=== PATIENT | male | born 1960 | race Caucasian/White ===

== ENCOUNTER → 2017-10-01 11:15 | Outpatient (CLI) | payer BC, SELFPAY ==
[2017-10-01 13:16] LABS: Hematocrit 39.3 % (40-54); Hemoglobin 11.9 g/dl (13.0-16.5); Mean Corp Hgb Conc 30.3 g/gl (32-36); Mean Corpuscular Hgb 22.2 pg (27.0-32.0); Mean Corpuscular Volume 73.3 fL (80-94); Mean Platelet Vol. 9.8 fl (6.2-12.0); Platelet Count 281 K/mm3 (150-450); RBC Distribution Width CV 16.5 % (11.6-14.6); RBC Distribution Width SD 43.4 fl (35.1-43.9); Red Blood Count 5.36 M/mm3 (4.6-6.2); White Blood Count 6.6 K/mm3 (4.4-11.0)
[2017-10-01 13:20] LABS: Scan Indicated on CBC? Y/N YES- FLAGS NOTED
== END ==
PROVIDERS: Family Provider Family Medicine; PCP Family Medicine
DX: F64.0 Transsexualism (principal)
CPT/HCPCS: 36415; 84403; 85027

== ENCOUNTER → 2017-12-23 16:05 | Outpatient (CLI) | payer BC, SELFPAY ==
[2017-12-23 18:32] LABS: Absolute Lymphocyte Count 2.01 X10^3/ul (0.83-4.51); Absolute Neutrophil Count 4.8 X10^3/uL (2.0-7.7); Basophil# 0.04 X10^3/uL; Basophil% 0.5 % (0-1); Eosinophil# 0.13 X10^3/uL; Eosinophils% 1.7 % (0-5); Hematocrit 39.4 % (40-54); Hemoglobin 11.5 g/dl (13.0-16.5); Lymphocyte # 2.01 X10^3/ul (4.0); Mean Corp Hgb Conc 29.2 g/gl (32-36); Mean Corpuscular Hgb 21.9 pg (27.0-32.0); Mean Corpuscular Volume 74.9 fL (80-94); Mean Platelet Vol. 9.2 fl (6.2-12.0); Monocyte# 0.48 X10^3/uL; Monocyte% 6.4 % (0-10); Neutrophil # 4.76 X10^3/uL (2.7-7.7); Platelet Count 252 K/mm3 (150-450); RBC Distribution Width CV 17.3 % (11.6-14.6); RBC Distribution Width SD 46.8 fl (35.1-43.9); Red Blood Count 5.26 M/mm3 (4.6-6.2); White Blood Count 7.5 K/mm3 (4.4-11.0)
[2017-12-23 18:33] LABS: Differential Indicated SCAN CRITERIA MET; POSITIVE COUNT NO; POSITIVE DIFFERENTIAL NO; POSITIVE MORPHOLOGY YES
[2017-12-23 18:38] LABS: CRP 4.51 mg/L (0.0-3.0); Uric Acid 8.1 mg/dL (3.5-7.2)
[2017-12-23 18:59] LABS: Differential Comment SCANNED
[2017-12-28 10:11] LABS: ANTINUCLEAR ANTIBODIES DIRECT Negative (Negative)
== END ==
PROVIDERS: Family Provider Family Medicine; PCP Family Medicine; Visit Provider Family Medicine
DX: M25.50 Pain in unspecified joint (principal)
CPT/HCPCS: 36415; 84439; 84443; 84550; 85025; 86038; 86140; 86431

== ENCOUNTER → 2018-01-04 16:31 | Outpatient (CLI) | payer BC, SELFPAY | PROVIDERS: Family Provider Family Medicine; PCP Family Medicine; Visit Provider Family Medicine | DX: M25.561 Pain in right knee (principal); M25.552 Pain in left hip | CPT/HCPCS: 73502; 73564 ==

== ENCOUNTER → 2018-04-11 16:12 | Outpatient (CLI) | payer BC, SELFPAY ==
[2018-04-11 18:36] LABS: Uric Acid 3.7 mg/dL (3.5-7.2)
--- OUTSIDE RECORDS SUMMARY | 2018-05-29 01:11 | XMS RPT_ITS ---
:1960 Author Organization [facility] Care Team Providers Name Role Phone PROVIDER, UNKNOWN Admitting Unavailable PROVIDER, UNKNOWN Attending Unavailable PATIENT, SELF Referring Unavailable Chuy Carlson Attending Unavailable Chuy Carlson Primary Care Unavailable AASHISH LANDRUM Attending Unavailable AASHISH LANDRUM Referring Unavailable Chuy Carlson Primary Care Unavailable Chuy Carlson Attending Unavailable Chuy Carlson Primary Care Unavailable Jossue Marie Attending Unavailable Jossue Marie Referring Unavailable Chuy Carlson Primary Care Unavailable PROBLEMS PROBLEMS DATE TYPE CONDITION / CODE ATTENDING STATUS SOURCE 01/04/2018 Unknown M25.561 - Pain in Gricelda Marie right knee / [facility] M25.561(ICD-10) Hospital Repository 01/04/2018 Unknown M25.552 - Pain in Frank, Active [place] left hip / [facility] M25.552(ICD-10) Hospital Repository 12/23/2017 Unknown M25.50 - Pain in Chuy Carlson Active [place] unspecified joint / Community M25.50(ICD-10) Hospital Repository 10/07/2017 Active Transsexualism / Unknown Active [facility] F64.0(ICD-10) System Repository PROCEDURES PROCEDURES No Procedure Records FoundRESULTS RESULTS URIC ACID Collected: 04/11/2018 Status: F Source: [place] 4:15 PM [facility] REPOSITORY Order Comment: Order Date: 12/27/17 Order Info: 3084-1 - URIC TYPE CODE TESTS RESULT OUT OF RANGE REFERENCE UNITS LAB L501.1400 3.5-7.2 mg/dL Normal URIC 3.7 Result Comment: The drugs N-Acetylcysteine and Metamizole may falsely depress this assay. Performed By: #### L501.1400 #### [facility] [address] [place], [address] KNEE 4 OR MORE Observed: 01/04/2018 Status: F Source: [place] VIEWS 4:37 PM [facility] REPOSITORY [facility] Imaging Services [address] [place] [address] Knee 4 or More Views MR#: [id number] Acct: [id number] Name: SHIMON CARLTON Rep #: [id number] : 1960 M 57 From: Angelo Rust DO PCP: Chuy Carlson MD Status: REG CLI Study: Knee 4 or More Views Date of Exam: 01/04/18 Exam# [id number] Ordering Dr: Ovi Marie MD STUDY: X-RAY - RIGHT KNEE REASON FOR EXAM: Male, 57 years old. Bilateral knee pain. TECHNIQUE: 4 view(s) of the knee. COMPARISON: None. FINDINGS: Normal visualized distal femur. Normal visualized proximal tibia and fibula. There is arthrosis of the proximal tibiofibular articulation. There is no acute fracture, dislocation or destructive osseous pathology. There is these findings at the insertion of both the patellar and quadriceps tendon on the patella. There is mild degenerative arthrosis of the medial femorotibial compartment. There is mild degenerative arthrosis of the lateral femorotibial compartment. There is moderate degenerative arthrosis of the patellofemoral articulation. There is no demonstrated joint effusion. The soft tissue structures are unremarkable. RAD/Knee 4 or More Views IMPRESSION: Degenerative arthrosis. Electronically Signed: Angelo Rust DO at 21:38 EDT Tel [phone], Service support , CC: Jossue Marie MD; Chuy Carlson MD [employer]: Signed KNEE 4 OR MORE Observed: 01/04/2018 Status: F Source: [place] VIEWS 4:35 PM [facility] REPOSITORY [facility] Imaging Services [address] [place] [address] Knee 4 or More Views MR#: [id number] Acct: [id number] Name: SHIMON CARLTON Rep #: [id number] : 1960 M 57 From: Angelo Rust DO PCP: Chuy Carlson MD Status: REG CLI Study: Knee 4 or More Views Date of Exam: 01/04/18 Exam# [id number] Ordering Dr: Ovi Marie MD STUDY: X-RAY - LEFT KNEE REASON FOR EXAM: Male, 57 years old. Bilateral knee pain. TECHNIQUE: 4 view(s) of the knee. COMPARISON: None. FINDINGS: Normal visualized distal femur. Normal visualized proximal tibia and fibula. There is arthrosis of the proximal tibiofibular articulation. There is no acute fracture, dislocation or destructive osseous pathology. There are testes of findings at the insertion of both the quadriceps and the patellar tendons on the patella. There is mild degenerative arthrosis of the medial femorotibial compartment. There is mild degenerative arthrosis of the lateral femorotibial compartment. There is mild degenerative arthrosis of the patellofemoral articulation. There is no demonstrated joint effusion. The soft tissue structures are unremarkable. RAD/Knee 4 or More Views IMPRESSION: Degenerative arthrosis. Electronically Signed: Angelo Rust DO at 21:39 EDT Tel [phone], Service support , CC: Jossue Marie MD; Chuy Carlson MD [employer]: Signed HIP, UNI W/ PELVIS Observed: 01/04/2018 Status: F Source: [place] 2-3 VIEWS 4:35 PM [facility] REPOSITORY [facility] Imaging Services [address] [place] [address] [place] [address] HIP, UNI W/ Pelvis 2-3 Views MR#: [id number] Acct: [id number] Name: SHIMON CARLTON Rep #: [id number] : 1960 M 57 From: Angelo Rust DO PCP: Aldo BEJARANO,Chuy Status: REG CLI Study: HIP, UNI W/ Pelvis 2-3 Views Date of Exam: 01/04/18 Exam# [id number] Ordering Dr: Ovi Marie MD STUDY: X-RAY - PELVIS AND LEFT HIP REASON FOR EXAM: Male, 57 years old. Left hip pain. TECHNIQUE: Radiological exam, hip, unilateral, with pelvis when performed; 2 or 3 views. COMPARISON: None. FINDINGS: There is a non-specific bowel gas pattern. Normal visualized soft tissue structures. There is a foreign body overlying the lower midline pelvis. Normal bilateral iliac wings, sacroiliac joints and visualized sacrum. Normal bilateral superior and inferior pubic rami. Normal pubic symphysis. Normal bilateral ischial tuberosities. There are osteoarthritic changes of the left femoral head with marginal osteophyte formation. There is osteoarthritic spur formation of the left acetabular rim. There is moderate articular joint space narrowing of the left hip. RAD/HIP, UNI W/ Pelvis 2-3 Views IMPRESSION: Degenerative changes of the left hip. There is no fracture or dislocation. Electronically Signed: Angelo Rust DO at 21:41 EDT Tel [phone], Service support , CC: Jossue Marie MD; Chuy Carlson MD [employer]: Signed CBC W/DIFF, AUTOMATED Collected: 12/23/2017 Status: F Source: [place] 4:06 PM [facility] REPOSITORY TYPE CODE TESTS RESULT OUT OF RANGE REFERENCE UNITS LAB L100.1000 4.4-11.0 K/mm3 Normal WBC 7.5 LAB L100.1200 4.6-6.2 M/mm3 Normal RBC 5.26 LAB L100.1300 13.0-16.5 g/dl Low HGB 11.5 LAB L100.1400 40-54 % Low HCT 39.4 LAB L100.1500 80-94 fL Low MCV 74.9 LAB L100.1600 27.0-32.0 pg Low MCH 21.9 LAB L100.1700 32-36 g/gl Low MCHC 29.2 LAB L100.1810 11.6-14.6 % High RDW CV 17.3 LAB L100.1820 35.1-43.9 fl High RDW SD 46.8 LAB L100.1900 150-450 K/mm3 Normal PLT 252 LAB L100.2000 6.2-12.0 fl Normal MPV 9.2 LAB L100.2100 47-70 % Normal NEUT% 64.0 LAB L100.2200 19-41 % Normal LY% 27.0 LAB L100.2300 0-10 % Normal MONO% 6.4 LAB L100.2400 0-5 % Normal EO% 1.7 LAB L100.2500 0-1 % Normal BASO% 0.5 LAB L100.2550 0.0-0.9 % Normal IM GRAN % 0.400 Result Comment: IG% - Immature Granulocytes (promyelocytes, myelocytes and metamyelocytes) > 1% indicates that a LEFT SHIFT is Present. LAB L100.2620 2.0-7.7 X10 3/uL Normal Absolute Neut 4.8 LAB L100.2720 0.83-4.51 X10 3/ul Normal Absolute Lymph 2.01 LAB L100.4500 Normal SMEAR COMMENT SCANNED Performed By: #### L100.0100 #### [facility] [address] [facility] [place], [place], [id number] URIC ACID Collected: 12/23/2017 Status: F Source: [place] 4:06 PM [facility] REPOSITORY TYPE CODE TESTS RESULT OUT OF RANGE REFERENCE UNITS LAB L501.1400 3.5-7.2 mg/dL High URIC 8.1 Result Comment: The drugs N-Acetylcysteine and Metamizole may falsely depress this assay. Performed By: #### L501.1400, L501.6710, L501.9520, L505.7010, L506.0400 #### [facility] [address] [place], [place], [id number] CRP Collected: 12/23/2017 Status: F Source: [place] 4:06 PM [facility] REPOSITORY TYPE CODE TESTS RESULT OUT OF RANGE REFERENCE UNITS LAB L501.6710 0.0-3.0 mg/L High 4.51 C-REACTIVE PROT Result Comment: C-Reactive Protein (CRP) provides useful information for the diagnosis, therapy and monitoring of inflammatory processes and associated diseases. For the evaluation of Relative Risk for Cardiovascular Disease, a High Sensitivity CRP (HSCRP) should be ordered. Performed By: #### L501.1400, L501.6710, L501.9520, L505.7010, L506.0400 #### [facility] [address] [place], [address] THYROID STIM HORMONE Collected: 12/23/2017 Status: F Source: [place] (TSH) 4:06 PM [facility] REPOSITORY TYPE CODE TESTS RESULT OUT OF RANGE REFERENCE UNITS LAB L501.9520 0.358-3.74 uIU/mL Normal TSH 2.10 Performed By: #### L501.1400, L501.6710, L501.9520, L505.7010, L506.0400 #### [facility] [address] [facility] [place], [place], [address] RHEUMATOID FACTOR Collected: 12/23/2017 Status: F Source: [place] 4:06 PM [facility] REPOS[facility]ORY TYPE CODE TESTS RESULT OUT OF RANGE REFERENCE UNITS LAB L505.7010 <15 IU/mL Normal RHEUMATOID FAC 12.0 Performed By: #### L501.1400, L501.6710, L501.9520, L505.7010, L506.0400 #### [facility] [address] [place], [address] T4 FREE DIRECT Collected: 12/23/2017 Status: F Source: [place] 4:06 PM [facility] REPOS[facility] TYPE CODE TESTS RESULT OUT OF RANGE REFERENCE UNITS LAB L506.0400 0.76-1.46 ng/dL Normal T4 FREE 0.80 DIRECT Performed By: #### L501.1400, L501.6710, L501.9520, L505.7010, L506.0400 #### [facility] [place], [address] ANTINUCLEAR ANTIBODIES Collected: 12/23/2017 Status: F Source: [place] DIRECT 4:06 PM [facility] REPOSITORY TYPE CODE TESTS RESULT OUT OF RANGE REFERENCE UNITS LAB L3100.5475 Negative Normal Negative GRICELDA-DIRECT Result Comment: Performed at: - [facility] [address] [id number] Separations Scientist: Ephraim Jara PhD, Phone: [phone] Performed By: #### L3100.5475 #### [facility] (refer to report for specific site) refer to report for address and phone number CBC-COMPLETE BLOOD CNT Collected: 10/01/2017 Status: F Source: [place] NO DIFF 11:22 AM [facility] REPOSITORY TYPE CODE TESTS RESULT OUT OF RANGE REFERENCE UNITS LAB L100.1000 4.4-11.0 K/mm3 Normal WBC 6.6 LAB L100.1200 4.6-6.2 M/mm3 Normal RBC 5.36 LAB L100.1300 13.0-16.5 g/dl Low HGB 11.9 LAB L100.1400 40-54 % Low HCT 39.3 LAB L100.1500 80-94 fL Low MCV 73.3 LAB L100.1600 27.0-32.0 pg Low MCH 22.2 LAB L100.1700 32-36 g/gl Low MCHC 30.3 LAB L100.1810 11.6-14.6 % High RDW CV 16.5 LAB L100.1820 35.1-43.9 fl Normal RDW SD 43.4 LAB L100.1900 150-450 K/mm3 Normal PLT 281 LAB L100.2000 6.2-12.0 fl Normal MPV 9.8 Performed By: #### L100.0500, L100.4500 #### [facility] [address] [place], [place], [address] DIFFERENTIAL COMMENT Collected: 10/01/2017 Status: F Source: [place] 11:22 AM [facility] REPOS[facility]ORY TYPE CODE TESTS RESULT OUT OF RANGE REFERENCE UNITS LAB L100.4500 Normal SMEAR COMMENT Result Comment: 1+ ANISOCYTOSIS Performed By: #### L100.0500, L100.4500 #### [facility] [address] [place], [place], [address] TESTOSTERONE, SERUM TOTAL Collected: 10/01/2017 Status: F Source: [place] 11:22 AM [facility] REPOSITORY TYPE CODE TESTS RESULT OUT OF REFERENCE UNITS RANGE LAB L509.3000 ng/dL Testosterone Normal 969.30 Result Comment: NORMAL REFERENCE RANGES MALE AGE <50 123.06 - 813.86 ng/dL MALE AGE >50 89.98 - 780.10 ng/dL FEMALE PREMENOPAUSE AGE 21 - 60 9.01 - 47.94 ng/dL FEMALE POSTMENOPAUSE AGE 45 - 89 <7.00 - 45.62 ng/dL REFERENCE RANGE AND METHODOLOGY CHANGED 04/21/2017 Performed By: #### L509.3000 #### [facility] [address] [place], [place], [address] ALLERGIES ALLERGIES DATE TYPE / CODE NAME / CODE REACTION SEVERITY SOURCE 01/07/2016 DRUG/826408 AMOXICILLIN-POT OTHER [facility] 003(SNOMED CLAVULANATE System Repository CT) 01/07/2016 Drug SULFA ANTIBIOTICS RASH [facility] Class/58669 System Repository 1003(SNOMED CT) 05/05/2015 Drug Sulfa (Sulfonamide Itching Unknown [place] [facility] Allergy/416 Antibiotics)/F0010 Hospital 640766(SNOM 91829(RXNORM) Repository ED CT) 05/05/2015 Drug amoxicillin/V55150 Other Unknown [place] Allergy/416 3675(RXNORM) Hospital 565501(SNOM Repository ED CT) ENCOUNTERS ENCOUNTERS ADMIT/DISCHARGE ACCOUNT NUMBER ADMITTING ENCOUNTER LOCATION SOURCE CLASS 04/11/2018 [id number] [facility] ding:MFPLAB Repository 01/04/2018 [id number] [facility] ding:MTRAD Repository 12/23/2017 [id number] [facility] ding:MFPLAB Repository 10/07/2017/10/08/19 [id number] Unknown [facility] Repository 10/01/2017 [id number] [facility] ding:MTLAB Repository PAYERS PAYERS ENCOUNTER GUARANTOR PAYER SUBSCRIBER SOURCE 04/11/2018 SHIMON [place] Primary SHIMON N [place] [id number] N Insurance:ANTHEMPolicy FISCHERDOB: [facility] JENNIFER Number: [id number] [id number] Repository 117[address]Vxx: (330) Date:9582-93-70KK [phone] () [address] [place] [address]GV: 04/11/2018 Secondary NOT GIVENUNK [place] Insurance:SELF PAY Community INSURANCEPolicy Number: Hospital Effective Repository Date:2018-04-11 01/04/2018 SHIMON N Primary SHIMON N [place] [id number] N Insurance:ANTHEMPolicy FISCHERDOB: [facility] JENNIFER Number: [id number] [id number] Repository [address]Npy: (330) Date:6168-26-07ZQ [phone] () [address] [place] [address] 270[address]UJ: 01/04/2018 Secondary NOT GIVENUNK [place] Insurance:SELF PAY Community INSURANCEPolicy Number: Hospital Effective Repository Date:2018-01-04 12/23/2017 SHIMON N Primary SHIMON N [place] [id number] N Insurance:ANTHEMPolicy FISCHERDOB: Community JENNIFER Number: [id number] [place], [place] [id number] Repository [address]Thn: ([phone]) Date:8623-17-40CH [phone] () [id number] [place] [address]DW: 12/23/2017 Secondary NOT GIVENUNK [place] Insurance:SELF PAY Community INSURANCEPolicy Number: Hospital Effective Repository Date:2017-12-23 10/07/2017 SHIMON N Primary SHIMON N [facility] FISCHERDOB: Insurance:ANTHEM /BLUE FISCHERDOB: System [id number] N CROSS TRADITIONALPolicy [id number] Repository JENNIFER Number: [place], [place] [id number] [place], [place] [address]Tst: (330) Date:2017-05-03 [id number]: (HP) [phone] () 10/01/2017 SHIMON N Primary SHIMON N [place] [id number] N Insurance:ANTHEMPolicy FISCHERDOB: Community JENNIFER Number: [id number] [place], [place] [id number] Repository [address]Jwx: (330) Date:1759-82-19TV [phone] () [id number] [place] [address] 27[address]EG: 10/01/2017 Secondary NOT GIVENUNK [place] Insurance:SELF PAY Community INSURANCEPolicy Number: Hospital Effective Repository Date:2017-09-29
--- OUTSIDE RECORDS SUMMARY | 2018-05-29 01:11 | XMS RPT_ITS ---
:1960 Author Organization [employer] Address [facility] [place] [address] Phone Care Team Providers Name Role Phone Rashel Rodriguez MD Unavailable Reason for Visit Reason For Visit Description Start Date New Complaint Preliminary reason for visit data, not yet signed by the author as of left hip pain Preliminary reason for visit data, not yet signed by the author as of Chief Complaint Chief Complaint Description Start Date left hip pain Preliminary chief complaint data, not yet signed by the author as of Instructions No information available. Plan of Care No information available. Medications Medication Instructions Start Stop Generic Name NDC Provider Date Date NABUMETONE 750 twice a day / NABUMETONE 29897652014 Rashel Lilly MG TABS 18 Jennifer BEJARANO NAPROSYN 500 Take 1 tablet by / NAPROXEN 60035292482 Noah Bauman MG TABS mouth 2 times a 19 Johny BEJARANO day with food PERCOCET 5-325 as needed for / OXYCODONE-ACETA 92134947307 Noah Bauman MG TABS pain. 19 MINOPHEN Johny BEJARANO CETIRIZINE HCL 1 tablet daily / CETIRIZINE HCL 64154535861 Noah Bauman 10 MG TABS 09 Johny BEJARANO FLUOXETINE HCL 1 capsule daily / FLUOXETINE HCL 98963475671 Noah Bauman (PMDD) 10 MG 09 (PMDD) Johny BEJARANO CAPS GABAPENTIN 300 2 tablets at / GABAPENTIN 84217783686 Noah Bauman MG CAPS bedtime 09 Johny BEJARANO NEXIUM 40 MG 1 Tablet daily / ESOMEPRAZOLE 90122533632 Noah Bauman CPDR 09 MAGNESIUM Johny BEJARANO Conditions or Problems Problem Name Problem Onset Status Entry Provider Comment Standard Annotate Code Date Date Description Body mass index 155925790 Active Rashel Maxx Body mass index (BMI) (SNOMED 01/18 01/20 Jennifer BEJARANO 40+ - severely 40.0-44.9, CT) obese adult Morbid (severe) 547687776 Active Rashel Maxx Body mass index obesity due to (SNOMED 01/18 01/20 Jennifer BEJARANO 40+ - severely excess calories CT) obese Primary 788302973 Active Rashel Maxx Osteoarthritis osteoarthritis (SNOMED 01/18 01/20 Jennifer BEJARANO of hip of left hip CT) 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 Rashel Lilly 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, right patella ) knee Allergies, Adverse Reactions, Alerts Allergy Name Reaction Start Date Severity Status Provider Description SULFA skin rash Critical Active Noah Mcclain MD AMOXICILLIN Critical Active Noah Mcclain MD Social History Concept Description Observation Name Observation Value Units Start Date Employment detail OCCUPATION#1 [employer] Preliminary social history data, not yet signed by the author as of Vital Signs Date Name Value Unit Description BMI (Body Mass 42.42 kg/m2 Body Mass Index Index) [Ratio] Preliminary vital sign data, not yet signed by the author as of BP Diastolic 81 mm[Hg] blood pressure, diastolic Preliminary vital sign data, not yet signed by the author as of BP Diastolic 86 mm[Hg] blood pressure, diastolic, second observation Preliminary vital sign data, not yet signed by the author as of BP Systolic 148 mm[Hg] blood pressure, systolic Preliminary vital sign data, not yet signed by the author as of BP Systolic 155 mm[Hg] blood pressure, systolic, second observation Preliminary vital sign data, not yet signed by the author as of Heart Rate 54 /min pulse rate E&M Preliminary vital sign data, not yet signed by the author as of Height 68 [in_us] height E&M Preliminary vital sign data, not yet signed by the author as of Height 173 cm height in centimeters E&M Preliminary vital sign data, not yet signed by the author as of Weight Measured 278 [lb_av] weight E&M Preliminary vital sign data, not yet signed by the author as of Weight Measured 126 kg weight in kilograms E&M Preliminary vital sign data, not yet signed by the author as of Results Date Name Value Unit Range Flag Description Office Visit: New Complaint, Rm: 1 MEDS REVIEW Done Documentation of current medications (procedure) Preliminary observation data, not yet signed by the author as of Preliminary observation data, not yet signed by the author as of Clinical Summary: HMSPatientID FOP account number Procedures Code Procedure Name Date Entry Date G8730 Pain assessment documented as positive - follow-up documented G8427 Current medications documented 4004F-8P Tobacco screening or cessation counseling not performed - unknown reason G8419 BMI outside of normal parameters - no follow-up plan/reason not given G8952 Blood pressure outside of normal parameters - follow-up not documented 1006F Osteoarthritis symptoms and functional status assessed [facility]-[id number] Patient Encounter Medications Administered No information available. Immunizations No information available. Advance Directives There may be information available, but it has not been provided by the sender. Assessments There may be information available, but it has not been provided by the sender. Review of Systems There may be information available, but it has not been provided by the sender. Family History There may be information available, but it has not been provided by the sender. History of Past Illness There may be information available, but it has not been provided by the sender. History of Present Illness There may be information available, but it has not been provided by the sender.
== END ==
PROVIDERS: Family Provider Family Medicine; PCP Family Medicine; Visit Provider Family Medicine
DX: E79.0 Hyperuricemia without signs of inflammatory arthritis and tophaceous disease (principal)
CPT/HCPCS: 36415; 84550

== ENCOUNTER → 2018-07-28 15:12 | Outpatient (CLI) | payer BC, SELFPAY ==
[2018-07-28 17:41] LABS: Hematocrit 38.2 % (40-54); Hemoglobin 11.5 g/dl (13.0-16.5); White Blood Count 7.5 K/mm3 (4.4-11.0)
[2018-07-28 17:42] LABS: Absolute Lymphocyte Count 2.53 X10^3/ul (0.83-4.51); Absolute Neutrophil Count 4.2 X10^3/uL (2.0-7.7); Basophil% 0.5 % (0-1); Eosinophils% 1.9 % (0-5); Lymphocyte # 2.53 X10^3/ul (4.0); Lymphocyte % 33.9 % (19-41); Mean Corp Hgb Conc 30.1 g/gl (32-36); Mean Corpuscular Hgb 23.5 pg (27.0-32.0); Mean Platelet Vol. 9.3 fl (6.2-12.0); Monocyte% 7.2 % (0-10); Neutrophil # 4.16 X10^3/uL (2.7-7.7); Neutrophil % 55.7 % (47-70); POSITIVE COUNT NO; POSITIVE DIFFERENTIAL NO; POSITIVE MORPHOLOGY NO; Platelet Count 268 K/mm3 (150-450); RBC Distribution Width CV 16.2 % (11.6-14.6)
[2018-07-28 17:43] LABS: Basophil# 0.04 X10^3/uL; Eosinophil# 0.14 X10^3/uL; Monocyte# 0.54 X10^3/uL
[2018-07-28 17:49] LABS: ALB/GLOB Ratio 1.3 RATIO (0.9-2.4); AST(SGOT) 22 U/L (15-37); Alanine Aminotransfer ALT/SGPT 29 U/L (16-61); Albumin, Serum 3.6 g/dL (3.2-5.0); Alkaline Phosphatase 103 U/L (45-117); Anion Gap 4 (5-15); BUN 10 mg/dL (7-18); BUN/Creat Ratio 10.9 RATIO (10-20); Calcium,Total 9.7 mg/dL (8.5-10.1); Chloride 105 mmol/L (98-107); Cholesterol 216 mg/dL (200); Creatinine, Serum 0.92 mg/dL (0.70-1.30); EST Glomerular Filtration Rate 90 mL/min (>60); Est Glom Filt Rate - Afr Amer 108 mL/min (>60); Globulin 2.8 g/dL (2.2-4.2); Glucose 75 mg/dL (74-106); High Density Lipoprotein 29 mg/dL; Potassium 3.9 mmol/L (3.5-5.1); Protein, Total 6.4 g/dL (6.4-8.2); Sodium Level 138 mmol/L (136-145); T4 Free Direct 0.82 ng/dL (0.76-1.46); Thyroid Stim Hormone (TSH) 2.64 uIU/mL (0.358-3.74); Triglycerides 252 mg/dL; Very Low Density Lipoprotein 50 mg/dL (5-40)
[2018-08-01 11:18] LABS: Testosterone, % Free 2.73 % (1.50-4.20); Testosterone, Total 447 ng/dL (264-916)
== END ==
PROVIDERS: Family Provider Family Medicine; PCP Family Medicine; Referring Provider Family Medicine; Visit Provider Family Medicine
DX: I10 Essential (primary) hypertension (principal); E78.00 Pure hypercholesterolemia, unspecified; F64.0 Transsexualism
CPT/HCPCS: 36415; 80053; 80061; 84402; 84403; 84439; 84443; 85025

== ENCOUNTER → 2019-01-30 | Outpatient (CLI) | payer BC, SELFPAY ==
--- NOTE | 2019-01-30 12:29 | RAD_ITS ---
STUDY: X-RAY - PELVIS AND BILATERAL HIPS REASON FOR EXAM: Male, 58 years old. Arthritis TECHNIQUE: AP view of the pelvis.? 2 views of the right hip, and 2 views of the left hip were obtained. COMPARISON: None. FINDINGS: There is a non-specific bowel gas pattern. Normal visualized soft tissue structures. Normal bilateral iliac wings, sacroiliac joints and visualized sacrum. Normal bilateral superior and inferior pubic rami. Normal pubic symphysis. Normal bilateral ischial tuberosities. There is mild joint space loss in the bilateral hip joints. There is mild to moderate bilateral osteophytosis present, greatest on the left. RAD/Hips B/L min 2 views w/ Pelvis IMPRESSION: No acute fracture or dislocation. Mild to moderate bilateral osteoarthritic degenerative changes of the hip joints, left greater than right. Electronically Signed: Prasanna Ibrahim, at 21:45 EDT Tel , Service support ,
[2019-01-30 15:28] LABS: ALB/GLOB Ratio 1.1 RATIO (0.9-2.4); AST(SGOT) 23 U/L (15-37); Alanine Aminotransfer ALT/SGPT 48 U/L (16-61); Albumin, Serum 3.5 g/dL (3.2-5.0); Alkaline Phosphatase 115 U/L (45-117); Anion Gap 6 (5-15); BUN 15 mg/dL (7-18); BUN/Creat Ratio 14.7 RATIO (10-20); Calcium,Total 9.8 mg/dL (8.5-10.1); Chloride 106 mmol/L (98-107); Creatinine, Serum 1.02 mg/dL (0.70-1.30); EST Glomerular Filtration Rate 80 mL/min (>60); Est Glom Filt Rate - Afr Amer 96 mL/min (>60); Globulin 3.3 g/dL (2.2-4.2); Glucose 79 mg/dL (74-106); Potassium 4.3 mmol/L (3.5-5.1); Protein, Total 6.8 g/dL (6.4-8.2); Sodium Level 140 mmol/L (136-145); Uric Acid 8.3 mg/dL (3.5-7.2)
[2019-01-30 15:31] LABS: Hemoglobin A1c 6.3 % (4.2-6.3)
[2019-01-30 15:34] LABS: Vitamin D,25 Hydroxy 25.6 ng/mL (29.95-100.01)
== END | disposition home or self-care (01) ==
PROVIDERS: Family Provider Family Medicine; PCP Family Medicine; Referring Provider Family Medicine; Visit Provider Family Medicine
DX: E55.9 Vitamin D deficiency, unspecified (principal); E88.81 Metabolic syndrome and other insulin resistance; E79.0 Hyperuricemia without signs of inflammatory arthritis and tophaceous disease; M16.12 Unilateral primary osteoarthritis, left hip
CPT/HCPCS: 36415; 73521; 80053; 82306; 83036; 84550

== ENCOUNTER → 2019-02-24 | Outpatient (CLI) | payer BC, SELFPAY ==
[2019-02-24 15:50] LABS: Absolute Lymphocyte Count 2.07 X10^3/uL (0.83-4.51); Absolute Neutrophil Count 3.9 X10^3/uL (2.0-7.7); Basophil# 0.03 X10^3/uL; Basophil% 0.5 % (0-1); Eosinophil# 0.07 X10^3/uL; Eosinophils% 1.1 % (0-5); Hematocrit 42.8 % (40-54); Hemoglobin 12.2 g/dL (13.0-16.5); Lymphocyte # 2.07 X10^3/ul (4.0); Lymphocyte % 31.1 % (19-41); Mean Corp Hgb Conc 28.5 g/dL (32-36); Mean Corpuscular Hgb 21.6 pg (27.0-32.0); Mean Corpuscular Volume 75.9 fL (80-94); Mean Platelet Vol. 9.4 fl (6.2-12.0); Monocyte# 0.59 X10^3/uL; Monocyte% 8.9 % (0-10); NRBC Flagged by Analyzer 0 % (0-5); Neutrophil # 3.87 X10^3/uL (2.7-7.7); Neutrophil % 58.1 % (47-70); Platelet Count 311 K/mm3 (150-450); RBC Distribution Width CV 16.5 % (11.6-14.6); RBC Distribution Width SD 44.2 fl (35.1-43.9); Red Blood Count 5.64 M/mm3 (4.6-6.2); White Blood Count 6.7 K/mm3 (4.4-11.0)
[2019-02-24 15:51] LABS: Albumin, Serum 3.6 g/dL (3.2-5.0)
== END | disposition home or self-care (01) ==
LOC: LAB.FUTURE 14:14
PROVIDERS: Family Provider Family Medicine; PCP Family Medicine; Referring Provider Specialist; Visit Provider Specialist
DX: Z01.812 Encounter for preprocedural laboratory examination (principal)
CPT/HCPCS: 36415; 82040; 85025

== ENCOUNTER → 2019-03-17 | Outpatient (CLI) | payer BC, SELFPAY ==
--- NOTE | 2019-03-17 12:30 | EKG12_ITS ---
Test Reason : PRE OP Blood Pressure : / mmHG Vent. Rate : 048 BPM Atrial Rate : 048 BPM P-R Int : 158 ms QRS Dur : 098 ms QT Int : 430 ms P-R-T Axes : 051 -34 016 degrees QTc Int : 384 ms Marked sinus bradycardia Left axis deviation Minimal voltage criteria for LVH, may be normal variant Abnormal ECG Confirmed by JOY BEJARANO, JANICE ([id number]), index editor STEVIE MENEZES ([id number]) on 03/21/2019 11:32:19 AM Referred By: Jan Perez Confirmed By:JANICE HAMILTON MD
[2019-03-17 12:52] LABS: Absolute Lymphocyte Count 2.41 X10^3/uL (0.83-4.51); Basophil# 0.05 X10^3/uL; Basophil% 0.7 % (0-1); Eosinophil# 0.11 X10^3/uL; Eosinophils% 1.5 % (0-5); Hematocrit 41.4 % (40-54); Hemoglobin 12.1 g/dL (13.0-16.5); Lymphocyte # 2.41 X10^3/ul (4.0); Lymphocyte % 33.6 % (19-41); Mean Corp Hgb Conc 29.2 g/dL (32-36); Mean Corpuscular Hgb 21.8 pg (27.0-32.0); Mean Corpuscular Volume 74.6 fL (80-94); Mean Platelet Vol. 9.3 fl (6.2-12.0); Monocyte# 0.58 X10^3/uL; Monocyte% 8.1 % (0-10); NRBC Flagged by Analyzer 0 % (0-5); Neutrophil # 3.99 X10^3/uL (2.7-7.7); Neutrophil % 55.7 % (47-70); Platelet Count 272 K/mm3 (150-450); RBC Distribution Width CV 16.6 % (11.6-14.6); RBC Distribution Width SD 43.9 fl (35.1-43.9); Red Blood Count 5.55 M/mm3 (4.6-6.2); White Blood Count 7.2 K/mm3 (4.4-11.0)
[2019-03-17 13:44] LABS: Anion Gap 6 (5-15); BUN 19 mg/dL (7-18); BUN/Creat Ratio 18.8 RATIO (10-20); Calcium,Total 10.2 mg/dL (8.5-10.1); Chloride 105 mmol/L (98-107); Creatinine, Serum 1.01 mg/dL (0.70-1.30); EST Glomerular Filtration Rate 80 mL/min (>60); Est Glom Filt Rate - Afr Amer 97 mL/min (>60); Glucose 88 mg/dL (74-106); Potassium 4.8 mmol/L (3.5-5.1); Sodium Level 139 mmol/L (136-145)
== END | disposition home or self-care (01) ==
LOC: LAB 12:12
PROVIDERS: Family Provider Family Medicine; PCP Family Medicine; Referring Provider Physician Assistant Surgical; Visit Provider Physician Assistant Surgical
DX: Z01.810 Encounter for preprocedural cardiovascular examination (principal)
CPT/HCPCS: 36415; 80048; 85025; 93005

== ENCOUNTER → 2019-07-24 | Outpatient (CLI) | payer BC, SELFPAY | END | disposition home or self-care (01) | LOC: SL 20:14 | PROVIDERS: PCP Family Medicine; Referring Provider Nurse Practitioner Acute Care; Visit Provider Nurse Practitioner Acute Care | DX: G47.33 Obstructive sleep apnea (adult) (pediatric) (principal) | CPT/HCPCS: 95810 ==

== ENCOUNTER → 2019-09-12 | Outpatient (CLI) | payer BC, SELFPAY ==
[2019-07-24 08:15] VITALS: BMI 39.5
[2019-09-12 17:56] LABS: Magnesium 2.2 mg/dL (1.6-2.6)
[2019-09-18 12:03] LABS: Hemoglobin A1c 6.1 % (4.2-6.3)
[2019-09-21 08:08] LABS: Testosterone, Free 5.97 ng/dL (5.00-21.00)
[2019-09-21 09:20] LABS: Testosterone, % Free 2.17 % (1.50-4.20); Testosterone, Total 275 ng/dL (264-916)
== END | disposition home or self-care (01) ==
LOC: MFPLAB 15:02
PROVIDERS: PCP Family Medicine; Visit Provider Family Medicine
DX: E78.00 Pure hypercholesterolemia, unspecified (principal)
CPT/HCPCS: 36415; 83036; 83735; 84402; 84403

== ENCOUNTER → 2019-09-18 | Outpatient (CLI) | payer BC, SELFPAY ==
[2019-07-24 08:15] VITALS: BMI 39.5
[2019-09-18 18:09] LABS: Absolute Lymphocyte Count 2.64 X10^3/uL (0.83-4.51); Absolute Neutrophil Count 3.7 X10^3/uL (2.0-7.7); Basophil# 0.07 X10^3/uL; Eosinophil# 0.35 X10^3/uL; Eosinophils% 4.8 % (0-5); Hematocrit 36.1 % (40-54); Hemoglobin 9.6 g/dL (13.0-16.5); Lymphocyte # 2.64 X10^3/ul (4.0); Lymphocyte % 36.2 % (19-41); Mean Corp Hgb Conc 26.6 g/dL (32-36); Mean Corpuscular Hgb 17.7 pg (27.0-32.0); Mean Corpuscular Volume 66.5 fL (80-94); Mean Platelet Vol. 9.1 fl (6.2-12.0); Monocyte# 0.51 X10^3/uL; NRBC Flagged by Analyzer 0 % (0-5); Neutrophil # 3.67 X10^3/uL (2.7-7.7); Neutrophil % 50.2 % (47-70); POSITIVE MORPHOLOGY YES; Platelet Count 291 K/mm3 (150-450); RBC Distribution Width CV 20.4 % (11.6-14.6); RBC Distribution Width SD 46.4 fl (35.1-43.9); Red Blood Count 5.43 M/mm3 (4.6-6.2); White Blood Count 7.3 K/mm3 (4.4-11.0)
[2019-09-18 18:22] LABS: Differential Indicated SCAN CRITERIA MET
[2019-09-18 18:24] LABS: ALB/GLOB Ratio 0.9 RATIO (0.9-2.4); AST(SGOT) 15 U/L (15-37); Alanine Aminotransfer ALT/SGPT 22 U/L (16-61); Albumin, Serum 3.5 g/dL (3.2-5.0); Alkaline Phosphatase 113 U/L (45-117); Anion Gap 5 (5-15); BUN 10 mg/dL (7-18); BUN/Creat Ratio 9.8 RATIO (10-20); Calcium,Total 9.7 mg/dL (8.5-10.1); Chloride 104 mmol/L (98-107); Creatinine, Serum 1.02 mg/dL (0.70-1.30); EST Glomerular Filtration Rate 79 mL/min (>60); Est Glom Filt Rate - Afr Amer 96 mL/min (>60); Globulin 3.7 g/dL (2.2-4.2); Glucose 87 mg/dL (74-106); Protein, Total 7.2 g/dL (6.4-8.2); Sodium Level 138 mmol/L (136-145); Uric Acid 6.9 mg/dL (3.5-7.2)
[2019-09-18 19:14] LABS: Anisocytosis 1+; Ovalocyte 1+; Platelet Estimate ADEQUATE (ADEQ); Red Cell Morphology N CHROM NORMAL (NORM C&C)
== END | disposition home or self-care (01) ==
PROVIDERS: PCP Family Medicine; Referring Provider Family Medicine; Visit Provider Family Medicine
DX: E79.0 Hyperuricemia without signs of inflammatory arthritis and tophaceous disease (principal); E88.81 Metabolic syndrome and other insulin resistance; F64.0 Transsexualism
CPT/HCPCS: 36415; 80053; 83735; 84550; 85025

== ENCOUNTER → 2019-09-28 | Outpatient (CLI) | payer BC, SELFPAY ==
[2019-06-29 08:48] VITALS: BMI 39.4
[2019-07-24 08:15] VITALS: BMI 39.5
--- NOTE | 2019-09-28 14:18 | PFTCOMP_ITS ---
COMPLETE PULMONARY FUNCTION TEST INTERPRETATION Brief HPI: Patient is a 59 year old male, currently under the care of Dr. Bang, who presents to [facility] for complete pulmonary function tests secondary to diagnosis of dyspnea. Respiratory therapist reports good effort and reproducible results. Interpretation: Forced expiration spirometry shows no large airways obstructive ventilatory defect with an FEV1 of 72% predicted. There is no significant bronchodilator response by strict ATS criteria. Spirograms are of good quality and plateau normally. The respiratory flow volume loop shows a normal pattern. Lung volumes by body plethysmography show a normal total lung capacity at 5.72 L, 89% predicted. All other lung volumes are within normal limits. Diffusion capacity by carbon monoxide is decreased at 63% predicted. The airway resistance is normal. No previous pulmonary function tests were available for review. Impression: Isolated reduction in diffusion capacity consistent with a pulmonary vascular disorder
== END | disposition home or self-care (01) ==
LOC: PSN 10:17
PROVIDERS: PCP Family Medicine; Referring Provider Nurse Practitioner Acute Care; Visit Provider Nurse Practitioner Acute Care
DX: R06.02 Shortness of breath (principal)
CPT/HCPCS: 94060; 94726; 94729

== ENCOUNTER → 2019-12-22 | Outpatient (CLI) | payer BC, SELFPAY ==
[2019-10-11 14:32] VITALS: BMI 39.4
[2019-12-22 17:28] LABS: Absolute Lymphocyte Count 2.19 X10^3/uL (0.83-4.51); Absolute Neutrophil Count 3.4 X10^3/uL (2.0-7.7); Basophil# 0.04 X10^3/uL; Basophil% 0.6 % (0-1); Eosinophil# 0.16 X10^3/uL; Eosinophils% 2.6 % (0-5); Hematocrit 45.1 % (40-54); Hemoglobin 13.4 g/dL (13.0-16.5); Lymphocyte # 2.19 X10^3/ul (4.0); Lymphocyte % 35.3 % (19-41); Mean Corp Hgb Conc 29.7 g/dL (32-36); Mean Corpuscular Hgb 24.4 pg (27.0-32.0); Mean Corpuscular Volume 82.1 fL (80-94); Monocyte# 0.41 X10^3/uL; Monocyte% 6.6 % (0-10); NRBC Flagged by Analyzer 0 % (0-5); Neutrophil # 3.37 X10^3/uL (2.7-7.7); Neutrophil % 54.3 % (47-70); POSITIVE MORPHOLOGY YES; Platelet Count 237 K/mm3 (150-450); RBC Distribution Width CV 23.5 % (11.6-14.6); Red Blood Count 5.49 M/mm3 (4.6-6.2); White Blood Count 6.2 K/mm3 (4.4-11.0)
[2019-12-22 17:43] LABS: Cholesterol 182 mg/dL (200); Ferritin 14 ng/mL (26-388); High Density Lipoprotein 30 mg/dL; Triglycerides 256 mg/dL; Very Low Density Lipoprotein 51 mg/dL (5-40)
[2019-12-22 18:16] LABS: Differential Indicated SCAN CRITERIA MET
[2019-12-22 18:17] LABS: Anisocytosis 1+; Microcytosis RARE; Platelet Estimate ADEQUATE (ADEQ); Red Cell Morphology N CHROM NORMAL (NORM C&C)
== END | disposition home or self-care (01) ==
LOC: MFPLAB 15:44
PROVIDERS: PCP Family Medicine; Referring Provider Family Medicine; Visit Provider Family Medicine
DX: D64.9 Anemia, unspecified (principal); F64.0 Transsexualism; E78.00 Pure hypercholesterolemia, unspecified
CPT/HCPCS: 36415; 80061; 82728; 84403; 85025

== ENCOUNTER → 2020-09-05 13:03 | Outpatient (CLI) | payer BC, SELFPAY ==
[2019-10-11 14:32] VITALS: BMI 39.4
[2020-09-05 13:28] LABS: Absolute Lymphocyte Count 2.34 X10^3/uL (0.83-4.51); Absolute Neutrophil Count 3.9 X10^3/uL (2.0-7.7); Basophil# 0.08 X10^3/uL; Basophil% 1.1 % (0-1); Eosinophil# 0.17 X10^3/uL; Eosinophils% 2.4 % (0-5); Hematocrit 47.8 % (40-54); Hemoglobin 15.5 g/dL (13.0-16.5); Lymphocyte # 2.34 X10^3/ul (0.83-4.51); Lymphocyte % 32.7 % (19-41); Mean Corp Hgb Conc 32.4 g/dL (32-36); Mean Corpuscular Hgb 29.8 pg (27.0-32.0); Mean Corpuscular Volume 91.9 fL (80-94); Mean Platelet Vol. 9.1 fl (6.2-12.0); Monocyte# 0.54 X10^3/uL; Monocyte% 7.6 % (0-10); NRBC Flagged by Analyzer 0 % (0-5); Neutrophil # 3.87 X10^3/uL (2.7-7.7); Neutrophil % 54.1 % (47-70); Platelet Count 225 K/mm3 (150-450); RBC Distribution Width CV 13.2 % (11.6-14.6); RBC Distribution Width SD 44.1 fl (35.1-43.9); White Blood Count 7.2 K/mm3 (4.4-11.0)
[2020-09-05 13:47] LABS: Microalbumin,Random Urine 22.4 mg/L (NO RANGE EST.)
[2020-09-05 14:02] LABS: AST(SGOT) 35 U/L (15-37); Alanine Aminotransfer ALT/SGPT 51 U/L (16-61); Albumin, Serum 3.7 g/dL (3.2-5.0); Alkaline Phosphatase 106 U/L (45-117); Anion Gap 5 (5-15); BUN 11 mg/dL (7-18); BUN/Creat Ratio 11.7 RATIO (10-20); Calcium,Total 9.9 mg/dL (8.5-10.1); Chloride 102 mmol/L (98-107); Cholesterol 248 mg/dL (200); Creatinine, Serum 0.94 mg/dL (0.70-1.30); EST Glomerular Filtration Rate 87 mL/min (>60); Est Glom Filt Rate - Afr Amer 105 mL/min (>60); Ferritin 33 ng/mL (26-388); Globulin 3.6 g/dL (2.2-4.2); Glucose 119 mg/dL (74-106); High Density Lipoprotein 31 mg/dL; Potassium 4.2 mmol/L (3.5-5.1); Protein, Total 7.3 g/dL (6.4-8.2); Sodium Level 136 mmol/L (136-145); Triglycerides 229 mg/dL; Very Low Density Lipoprotein 46 mg/dL (5-40)
== END ==
PROVIDERS: PCP Family Medicine; Visit Provider Family Medicine
DX: I10 Essential (primary) hypertension (principal); E78.00 Pure hypercholesterolemia, unspecified; D50.9 Iron deficiency anemia, unspecified
CPT/HCPCS: 36415; 80053; 80061; 82043; 82570; 82728; 84403; 85025

== ENCOUNTER → 2020-09-09 15:33 | Outpatient (CLI) | payer BC, SELFPAY ==
[2019-10-11 14:32] VITALS: BMI 39.4
[2020-09-09 18:44] LABS: T4 Free Direct 0.86 ng/dL (0.76-1.46); Thyroid Stim Hormone (TSH) 1.44 uIU/mL (0.358-3.74)
[2020-09-09 19:12] LABS: Vitamin B12 325 pg/mL (211-911); Vitamin D,25 Hydroxy 30.5 ng/mL
== END ==
PROVIDERS: PCP Family Medicine; Referring Provider Family Medicine; Visit Provider Family Medicine
DX: E55.9 Vitamin D deficiency, unspecified (principal); E89.0 Postprocedural hypothyroidism; R53.83 Other fatigue
CPT/HCPCS: 36415; 82306; 82607; 82746; 84439; 84443; 84481

== ENCOUNTER → 2020-09-16 13:34 | Outpatient (CLI) | payer BC, SELFPAY ==
[2019-10-11 14:32] VITALS: BMI 39.4
--- NOTE | 2020-09-16 13:36 | US_ITS ---
STUDY: THYROID ULTRASOUND REASON FOR EXAM: Male, 60 years old. hx colloid nodules. hx partial thyrodectomy TECHNIQUE: Ultrasound evaluation of the thyroid was performed with real-time and static reyes-scale imaging. COMPARISON: 01/15/2017. FINDINGS: RIGHT LOBE: The right thyroid lobe is nonvisualized consistent with known history of prior thyroidectomy. LEFT LOBE: The left lobe of the thyroid gland measures 4.9 x 2.2 x 1.8 cm. There is a heterogeneous echotexture. There are multiple cystic nodules within the left thyroid lobe, largest seen within the middle pole measuring 1.2 x 1.2 x 0.5 cm. There is mild peripheral color flow. A small cystic nodule seen within the anterior aspect of the medial pole of the left thyroid lobe measuring 0.9 x 1.0 x 0.4 cm. The margins are regular with peripheral color flow. Nonspecific linear calcification seen measuring 3.8 x 1 mm. ISTHMUS: The isthmus measures 2.0 mm. The regional lymph nodes are normal. US/Thyroid IMPRESSION: Multiple left-sided thyroid lobe, predominantly cystic area most compatible with benign process. If indicated, follow-up ultrasound in 6-12 months recommended to document stability. Status post right-sided thyroidectomy, overall stable study in the interval. Electronically Signed: Sofia Causey MD at 3:09 EDT , Service support ,
== END ==
PROVIDERS: PCP Family Medicine; Referring Provider Family Medicine; Visit Provider Family Medicine
DX: E89.0 Postprocedural hypothyroidism (principal)
CPT/HCPCS: 76536

== ENCOUNTER → 2020-12-03 14:12 | Outpatient (CLI) | payer BC, SELFPAY ==
[2019-10-11 14:32] VITALS: BMI 39.4
[2020-12-03 18:00] LABS: Absolute Lymphocyte Count 2.22 X10^3/uL (0.83-4.51); Absolute Neutrophil Count 4.2 X10^3/uL (2.0-7.7); Basophil# 0.06 X10^3/uL; Basophil% 0.8 % (0-1); Eosinophil# 0.22 X10^3/uL; Eosinophils% 3.1 % (0-5); Hematocrit 45.4 % (40-54); Hemoglobin 14.2 g/dL (13.0-16.5); Lymphocyte # 2.22 X10^3/ul (0.83-4.51); Lymphocyte % 30.8 % (19-41); Mean Corp Hgb Conc 31.3 g/dL (32-36); Mean Corpuscular Hgb 28.2 pg (27.0-32.0); Mean Corpuscular Volume 90.1 fL (80-94); Mean Platelet Vol. 9.4 fl (6.2-12.0); Monocyte# 0.41 X10^3/uL; Monocyte% 5.7 % (0-10); NRBC Flagged by Analyzer 0 % (0-5); Neutrophil # 4.19 X10^3/uL (2.7-7.7); Neutrophil % 58.1 % (47-70); Platelet Count 239 K/mm3 (150-450); RBC Distribution Width CV 13.4 % (11.6-14.6); RBC Distribution Width SD 43.7 fl (35.1-43.9); Red Blood Count 5.04 M/mm3 (4.6-6.2); White Blood Count 7.2 K/mm3 (4.4-11.0)
[2020-12-03 18:15] LABS: Vitamin D,25 Hydroxy 41.3 ng/mL
[2020-12-03 18:36] LABS: ALB/GLOB Ratio 1.1 RATIO (0.9-2.4); AST(SGOT) 19 U/L (15-37); Alanine Aminotransfer ALT/SGPT 36 U/L (16-61); Albumin, Serum 3.5 g/dL (3.2-5.0); Alkaline Phosphatase 107 U/L (45-117); Anion Gap 6 (5-15); BUN 10 mg/dL (7-18); BUN/Creat Ratio 10.7 RATIO (10-20); Calcium,Total 10.4 mg/dL (8.5-10.1); Chloride 103 mmol/L (98-107); Creatinine, Serum 0.93 mg/dL (0.70-1.30); EST Glomerular Filtration Rate 88 mL/min (>60); Est Glom Filt Rate - Afr Amer 106 mL/min (>60); Globulin 3.2 g/dL (2.2-4.2); Glucose 137 mg/dL (74-106); Protein, Total 6.7 g/dL (6.4-8.2); Sodium Level 137 mmol/L (136-145); T4 Free Direct 0.77 ng/dL (0.76-1.46); Thyroid Stim Hormone (TSH) 1.93 uIU/mL (0.358-3.74)
[2020-12-09 07:35] LABS: Testosterone Free 3.6 pg/mL (6.6-18.1)
== END ==
PROVIDERS: PCP Family Medicine; Visit Provider Family Medicine
DX: D50.9 Iron deficiency anemia, unspecified (principal); E55.9 Vitamin D deficiency, unspecified; E89.0 Postprocedural hypothyroidism; F64.0 Transsexualism
CPT/HCPCS: 36415; 80053; 82306; 84402; 84403; 84439; 84443; 85025

== ENCOUNTER → 2021-03-18 16:34 | Outpatient (CLI) | payer BC, SELFPAY ==
[2021-03-18 17:46] LABS: Hematocrit 45.9 % (40-54); Mean Corp Hgb Conc 32.7 g/dL (32-36); Mean Corpuscular Hgb 29.1 pg (27.0-32.0); Mean Corpuscular Volume 89.1 fL (80-94); Mean Platelet Vol. 9.8 fl (6.2-12.0); Platelet Count 259 K/mm3 (150-450); RBC Distribution Width CV 13.7 % (11.6-14.6); RBC Distribution Width SD 44.5 fl (35.1-43.9); Red Blood Count 5.15 M/mm3 (4.6-6.2); White Blood Count 7.8 K/mm3 (4.4-11.0)
[2021-03-18 18:54] LABS: AST(SGOT) 21 U/L (15-37); Alanine Aminotransfer ALT/SGPT 34 U/L (16-61); Albumin, Serum 3.6 g/dL (3.2-5.0); Alkaline Phosphatase 109 U/L (45-117); Anion Gap 3 (5-15); BUN 8 mg/dL (7-18); BUN/Creat Ratio 8.8 RATIO (10-20); Calcium,Total 9.9 mg/dL (8.5-10.1); Chloride 103 mmol/L (98-107); Creatinine, Serum 0.91 mg/dL (0.70-1.30); EST Glomerular Filtration Rate 91 mL/min (>60); Est Glom Filt Rate - Afr Amer 110 mL/min (>60); Globulin 3.7 g/dL (2.2-4.2); Glucose 103 mg/dL (74-106); Potassium 3.9 mmol/L (3.5-5.1); Protein, Total 7.3 g/dL (6.4-8.2); Sodium Level 137 mmol/L (136-145)
[2021-03-22 20:07] LABS: Testosterone, Free 19.58 ng/dL (5.00-21.00)
[2021-03-22 21:04] LABS: Testosterone, % Free 3.62 % (1.50-4.20); Testosterone, Total 541 ng/dL (264-916)
== END ==
PROVIDERS: PCP Family Medicine; Referring Provider Family Medicine; Visit Provider Family Medicine
DX: F64.0 Transsexualism (principal); Z79.899 Other long term (current) drug therapy
CPT/HCPCS: 36415; 80053; 84402; 84403; 85027

== ENCOUNTER 2021-05-09 11:56 | Outpatient (CLI) | payer BC, SELFPAY ==
--- NOTE | 2021-05-09 11:58 | RAD_ITS ---
STUDY: X-RAY - RIGHT HAND, ATTENTION 4 FINGER REASON FOR EXAM: Male, 61 years old. Finger injury. Pain. TECHNIQUE: 3 view(s) of the finger were obtained. COMPARISON: None. FINDINGS: Osteopenia. Osteoarthritic changes of the MCP, PIP and DIP joints. Irregularity of the base and dorsal aspect of the middle phalanx which may represent a nondisplaced fracture. Focal soft tissue swelling at this site. RAD/Finger(s) Min 2 Views IMPRESSION: Osteopenia with osteoarthritic changes. Focal lucency on the dorsal and proximal aspect of the middle phalanx which may represent a nondisplaced fracture. Focal soft tissue swelling at the PIP joint. Electronically Signed: Bulmaro Alejandre MD at 12:12 EST , Service support ,
== END 2021-05-09 23:59 | disposition short-term general hospital (02) ==
LOC: MTRAD 11:57
PROVIDERS: PCP Family Medicine; Referring Provider Family Medicine; Visit Provider Family Medicine
DX: S69.91XA Unspecified injury of right wrist, hand and finger(s), initial encounter (principal)
CPT/HCPCS: 73140

== ENCOUNTER 2021-06-24 14:49 | Outpatient (CLI) | payer BC, SELFPAY ==
[2021-06-24 17:51] LABS: Absolute Lymphocyte Count 2.42 X10^3/uL (0.83-4.51); Absolute Neutrophil Count 3.6 X10^3/uL (2.0-7.7); Basophil# 0.06 X10^3/uL; Basophil% 0.9 % (0-1); Eosinophil# 0.22 X10^3/uL; Eosinophils% 3.2 % (0-5); Hematocrit 45.5 % (40-54); Hemoglobin 14.5 g/dL (13.0-16.5); Lymphocyte # 2.42 X10^3/ul (0.83-4.51); Lymphocyte % 35.1 % (19-41); Mean Corp Hgb Conc 31.9 g/dL (32-36); Mean Corpuscular Hgb 28.3 pg (27.0-32.0); Mean Corpuscular Volume 88.7 fL (80-94); Mean Platelet Vol. 9.9 fl (6.2-12.0); Monocyte# 0.49 X10^3/uL; Monocyte% 7.1 % (0-10); NRBC Flagged by Analyzer 0 % (0-5); Neutrophil # 3.59 X10^3/uL (2.7-7.7); Platelet Count 235 K/mm3 (150-450); RBC Distribution Width CV 13.8 % (11.6-14.6); RBC Distribution Width SD 44.5 fl (35.1-43.9); Red Blood Count 5.13 M/mm3 (4.6-6.2); White Blood Count 6.9 K/mm3 (4.4-11.0)
[2021-06-24 18:23] LABS: Vitamin B12 669 pg/mL (211-911)
[2021-06-24 18:29] LABS: Hemoglobin A1c 6.7 % (3.8-5.6)
[2021-06-24 18:36] LABS: ALB/GLOB Ratio 1.1 RATIO (0.9-2.4); AST(SGOT) 33 U/L (15-37); Alanine Aminotransfer ALT/SGPT 39 U/L (16-61); Albumin, Serum 3.4 g/dL (3.2-5.0); Alkaline Phosphatase 98 U/L (45-117); Anion Gap 3 (5-15); BUN 10 mg/dL (7-18); BUN/Creat Ratio 10.3 RATIO (10-20); Calcium,Total 10.5 mg/dL (8.5-10.1); Chloride 101 mmol/L (98-107); Cholesterol 224 mg/dL (200); Creatinine, Serum 0.97 mg/dL (0.70-1.30); EST Glomerular Filtration Rate 83 mL/min (>60); Est Glom Filt Rate - Afr Amer 101 mL/min (>60); Globulin 3.1 g/dL (2.2-4.2); Glucose 117 mg/dL (74-106); High Density Lipoprotein 30 mg/dL; Potassium 4.3 mmol/L (3.5-5.1); Protein, Total 6.5 g/dL (6.4-8.2); Sodium Level 134 mmol/L (136-145); Thyroid Stim Hormone (TSH) 2.06 uIU/mL (0.358-3.74); Triglycerides 258 mg/dL; Very Low Density Lipoprotein 52 mg/dL (5-40)
== END 2021-06-24 23:59 | disposition home or self-care (01) ==
LOC: MFPLAB 14:49
PROVIDERS: PCP Family Medicine; Referring Provider Family Medicine; Visit Provider Family Medicine
DX: M51.34 Other intervertebral disc degeneration, thoracic region (principal); E66.01 Morbid (severe) obesity due to excess calories; G47.30 Sleep apnea, unspecified; E88.81 Metabolic syndrome and other insulin resistance; E53.8 Deficiency of other specified B group vitamins; E78.00 Pure hypercholesterolemia, unspecified; E89.0 Postprocedural hypothyroidism
CPT/HCPCS: 36415; 80053; 80061; 82607; 82746; 83036; 84443; 85025

== ENCOUNTER → 2021-09-30 | Outpatient (CLI) | payer BC, SELFPAY | END | disposition home or self-care (01) | PROVIDERS: PCP Family Medicine; Visit Provider Family Medicine | DX: Z00.00 Encounter for general adult medical examination without abnormal findings (principal) ==

== ENCOUNTER → 2021-09-30 | Outpatient (CLI) | payer BC, SELFPAY ==
[2021-09-30 14:51] LABS: Absolute Neutrophil Count 5.1 X10^3/uL (2.0-7.7); Basophil# 0.06 X10^3/uL; Basophil% 0.7 % (0-1); Eosinophil# 0.23 X10^3/uL; Eosinophils% 2.8 % (0-5); Hematocrit 48.1 % (40-54); Hemoglobin 15.1 g/dL (13.0-16.5); Mean Corp Hgb Conc 31.4 g/dL (32-36); Mean Corpuscular Hgb 26.7 pg (27.0-32.0); Mean Platelet Vol. 9.6 fl (6.2-12.0); Monocyte# 0.44 X10^3/uL; Monocyte% 5.3 % (0-10); NRBC Flagged by Analyzer 0 % (0-5); Neutrophil # 5.05 X10^3/uL (2.7-7.7); Platelet Count 300 K/mm3 (150-450); RBC Distribution Width CV 13.2 % (11.6-14.6); RBC Distribution Width SD 40.9 fl (35.1-43.9); Red Blood Count 5.66 M/mm3 (4.6-6.2); White Blood Count 8.3 K/mm3 (4.4-11.0)
[2021-09-30 15:15] LABS: ALB/GLOB Ratio 0.9 RATIO (0.9-2.4); AST(SGOT) 20 U/L (15-37); Alanine Aminotransfer ALT/SGPT 27 U/L (16-61); Albumin, Serum 3.5 g/dL (3.2-5.0); Alkaline Phosphatase 95 U/L (45-117); Anion Gap 6 (5-15); BUN 10 mg/dL (7-18); BUN/Creat Ratio 9.4 RATIO (10-20); Calcium,Total 9.8 mg/dL (8.5-10.1); Chloride 101 mmol/L (98-107); Cholesterol 223 mg/dL (200); Creatinine, Serum 1.06 mg/dL (0.70-1.30); EST Glomerular Filtration Rate 75 mL/min (>60); Est Glom Filt Rate - Afr Amer 91 mL/min (>60); Globulin 3.7 g/dL (2.2-4.2); Glucose 139 mg/dL (74-106); High Density Lipoprotein 28 mg/dL; Potassium 4.2 mmol/L (3.5-5.1); Protein, Total 7.2 g/dL (6.4-8.2); Sodium Level 134 mmol/L (136-145); Triglycerides 197 mg/dL; Very Low Density Lipoprotein 39 mg/dL (5-40)
[2021-09-30 15:30] LABS: Hemoglobin A1c 6.2 % (3.8-5.6)
== END | disposition home or self-care (01) ==
LOC: MFPLAB 12:18
PROVIDERS: PCP Family Medicine; Visit Provider Family Medicine
DX: I10 Essential (primary) hypertension (principal); E11.9 Type 2 diabetes mellitus without complications
CPT/HCPCS: 36415; 80053; 80061; 83036; 85025

== ENCOUNTER → 2021-10-08 | Outpatient (CLI) | payer BC, SELFPAY ==
--- NOTE | 2021-10-08 11:43 | RAD_ITS ---
STUDY: X-RAY CHEST REASON FOR EXAM: Male, 61 years old. CHEST PAIN FLU LIKE SYMPTOMS TECHNIQUE: XR Chest 2 Views COMPARISON: 2.116 FINDINGS: There is no demonstrated pleural abnormality. Normal size heart. Normal mediastinum and priscila. Normal visualized pulmonary arteries. Normal visualized aortic arch and descending thoracic aorta. Normal visualized thoracic spine. Normal visualized ribs, clavicles, and shoulders. There is no demonstrated abnormality of the visualized soft tissue structures of the upper abdomen. RAD/Chest PA and Lateral IMPRESSION: There are no acute findings. Electronically Signed: Ramana Joya MD at 19:29 EDT ,
== END | disposition home or self-care (01) ==
PROVIDERS: PCP Family Medicine; Referring Provider Family Medicine; Visit Provider Family Medicine
DX: R68.89 Other general symptoms and signs (principal)
CPT/HCPCS: 71046

== ENCOUNTER 2021-10-10 16:44 | Emergency (ER) | payer BC, SELFPAY ==
[2021-10-10 16:46] VITALS: BP 113/89; PULSE 89; RESP 14; TEMP 36.6; O2SAT 97; BMI 21.1
--- NOTE | 2021-10-10 17:03 | EDS_ITS ---
HPI History of Present Illness Chief Complaint: Lower Extremity Injury Informant: patient Onset/Context/Timing Onset: Days Context: Gradual Onset Current Severity: Moderate Maximum Severity: Moderate Narrative Narrative: Patient presents for ultrasound the left lower extremity. He was seen by his PCP on Wednesday with fever, body aches, cough. Chest x-ray was negative for pneumonia. He was started on doxycycline. He states although symptoms have improved but he then noted a red rash to his left lower leg. On follow-up today it is noted that his left leg is more swollen than the right and there is concern for DVT. PCP attempted to order ultrasound from the office with they were already closed for the day so he was sent to the emergency room. [facility] Medical History (Updated 10/10/21 @ 17:[address] Linda Carter MD) Achilles rupture, left Adjustment disorder Arthritis of left hip DDD (degenerative disc disease) Elevated blood uric acid level Gender dysphoria in adult Generalized anxiety disorder GERD (gastroesophageal reflux disease) HTN, goal below 130/80 Hypercholesteremia Iron deficiency anemia Metabolic syndrome Migraine with visual aura Mild diastolic dysfunction Obesity (BMI 30.0-34.9) Polyarthralgia Polyarthritis Seasonal affective disorder Seasonal rhinitis Sleep apnea in adult Stress incontinence of urine Tarlov cyst Thoracic back pain Vitamin D deficiency Home Medications esomeprazole magnesium 40 mg PO DAILY 06/15/13 [History Last Taken 06/12/14 40 MG] fluoxetine 20 mg PO DAILY 06/15/13 [History Last Taken 06/12/14 20 MG] bisoprolol fumarate 5 mg tablet 5 mg PO DAILY 06/27/19 [History Last Taken Unknown] cetirizine 10 mg capsule 10 mg PO DAILY 06/27/19 [History Last Taken Unknown] cholecalciferol (vitamin D3) unit PO 06/27/19 [History Last Taken Unknown] metformin 1,000 mg tablet 1,000 mg PO DAILY 06/27/19 [History Last Taken Unknown] testosterone cypionate 200 mg/mL intramuscular kit 100 mg IM Q2W 06/27/19 [History Last Taken Unknown] albuterol sulfate 90 mcg/actuation aerosol inhaler 2 puff INHALATION Q4H PRN #1 device 11/23/19 [Rx Last Taken Unknown] ascorbate calcium (vitamin C) 500 mg tablet 500 mg PO DAILY 11/23/19 [History Last Taken Unknown] multivitamin with iron 1 tab PO DAILY 11/23/19 [History Last Taken Unknown] Allergy/AdvReac Type Severity Reaction Status Date / Time Sulfa (Sulfonamide Allergy Itching Verified 11/23/19 09:13 Antibiotics) Family History Mother Lung cancer Arthritis Brother Lung cancer Grandfather Stomach cancer Grandmother Bone cancer Vascular disease Surgical History Cholecystectomy planned FHx: mastectomy H/O thyroidectomy Hip replacement planned History of hemiarthroplasty of right shoulder S/P tonsillectomy Varicose veins of left lower extremity Social History Smoking Status: Former smoker Tobacco: How many years used: 25 Electronic Cigarette Use: not used how long ago did patient quit smokin06/05/1998 ROS ROS ED Constitutional Constitutional ED: Reports other Details: Fever earlier in the week, recently resolved. Eyes Eyes: Denies blurry vision or change in vision ENT ENT ED: Denies ear pain Cardiovascular Cardiovascular: Denies chest pain or palpitations Respiratory/Chest Respiratory/Chest: Denies cough or dyspnea Gastrointestinal Gastrointestinal: Denies abdominal pain, diarrhea or vomiting Genitourinary Genitourinary ED: Denies dysuria Musculoskeletal Musculoskeletal: Reports myalgias Integumentary Reports rash Neurologic Neurologic: Denies headache(s) Allergic/Immunologic Allergic/Immunologic ED: Denies urticaria EXAM Physical Exam Const Vital Signs: 10/10/21 16:46 Temperature 98 F Temperature Source Temporal Pulse Rate 89 Respiratory Rate 14 Blood Pressure 113/89 H Blood Pressure Mean 97 Pulse Ox 97 Oxygen Delivery Method Room Air Positive well nourished and well developed General Appearance ED: well developed HEENT Reports moist mucous membranes Eyes PERRL and EOMs intact bilaterally Neck supple Chest Wall inspection of chest normal and palpation of chest normal Resp normal respiratory effort and clear to auscultation bilaterally Cardio regular rate and regular rhythm GI non-tender Palpation: soft Extremity Extremity Narrative: Area of erythema over the anterior and lateral left segundo. No open wounds. No drainage. 3+ left lower extremity edema noted. Neuro oriented x3 Sensorium / Orientation: alert Psych mental status grossly normal MDM MDM MDM Narrative Medical decision making narrative: Patient sent for venous ultrasound of the left leg. Treatment and Re-Evaluation Narrative: Venous ultrasound reveals no evidence of DVT. Test results discussed with the patient. Area of erythema is outlined with a surgical marker. Misael wrap is applied to the leg to provide light compression and help with fluid reabsorption. We discussed appropriate elevation of his leg. Patient states he does not necessarily feel the redness is worse with the doxycycline, it does seem to move from the medial portion of the leg to the lateral. In light of this he will continue his current course of doxycycline. I did advise him if he still has continued symptoms at the completion of this antibiotic he needs to be seen by his PCP for different antibiotic. Discharge Plan Triage Chief Complaint: Lower Extremity Injury ED Provider: Linda Carter Dx/Rx/DC Orders Clinical Impression: Cellulitis, Leg edema Instructions: ED Cellulitis, ED Peripheral Edema, Unilateral Prescriptions: No Action Zyrtec 10 mg capsule 10 mg PO DAILY RF: 0 testosterone cypionate 200 mg/mL kit 100 mg IM Q2W RF: 0 bisoprolol fumarate 5 mg tablet 5 mg PO DAILY RF: 0 metformin 1,000 mg tablet 1,000 mg PO DAILY RF: 0 cholecalciferol (vitamin D3) 1,000 unit/drop drops PO RF: 0 ascorbate calcium (vitamin C) 500 mg tablet 500 mg PO DAILY RF: 0 multivitamin with iron [Daily Multiple Vitamins/Iron] Tablet 1 tab PO DAILY RF: 0 albuterol sulfate 90 mcg/actuation HFA aerosol inhaler 2 puff inhalation Q4H PRN (Reason: shortness of breath or wheezing) Qty: 1 RF: 3 esomeprazole magnesium 40 MG capsule 40 mg PO DAILY RF: 0 fluoxetine 20 MG capsule 20 mg PO DAILY RF: 0 Primary Care Provider: Chuy Carlson Referrals: Chuy Carlson MD [Primary Care Provider] - 1 Week if not improving Disposition Disposition: Home, Self Care
--- NOTE | 2021-10-10 17:05 | US_ITS ---
STUDY: VENOUS DOPPLER ULTRASOUND - LEFT LOWER EXTREMITY REASON FOR EXAM: Male, 61 years old. LEG PAIN AND SWELLING LT LOWER LEG SWELLING- AROUND ANKLE TECHNIQUE: Ultrasound evaluation of the deep vein system to include silva-scale imaging and compression was performed. Silva-scale imaging and Doppler sonographic evaluation, including duplex spectral analysis and qualitative color flow sonography, was performed. COMPARISON: None. FINDINGS: Common Femoral Vein: Normal compression, spontaneity and augmentation. Normal color Doppler. Common Femoral Vein/Greater Saphenous Junction: Normal compression, spontaneity and augmentation. Normal color Doppler. Superficial Femoral Proximal: Normal compression, spontaneity and augmentation. Normal color Doppler. Superficial Femoral Middle: Normal compression, spontaneity and augmentation. Normal color Doppler. Superficial Femoral Distal: Normal compression, spontaneity and augmentation. Normal color Doppler. Popliteal Vein: Normal compression, spontaneity and augmentation. Normal color Doppler. Posterior Tibial Vein: Normal compression, spontaneity and augmentation. Normal color Doppler. Peroneal Vein: Normal compression, spontaneity and augmentation. Normal color Doppler. There is no demonstrated deep venous thrombosis. US/Venous Duplex Imag/Limited/Uni IMPRESSION: There is no demonstrated deep venous thrombosis. Electronically Signed: Ramana Joya MD at 18:26 EDT Reading Location ID and State: [facility] / [place] , Service support ,
[2021-10-10 17:52] VITALS: BP 145/90; PULSE 62; RESP 16; O2SAT 98
[2021-10-10 18:00] VITALS: BP 145/90; PULSE 62; RESP 16; O2SAT 98
== END 2021-10-10 18:08 | disposition home or self-care (01) ==
PROVIDERS: Emergency Provider Emergency Medicine; PCP Family Medicine; Visit Provider Emergency Medicine
DX: L03.119 Cellulitis of unspecified part of limb (principal); E78.00 Pure hypercholesterolemia, unspecified; I10 Essential (primary) hypertension; Z87.891 Personal history of nicotine dependence; R60.0 Localized edema
CPT/HCPCS: 93971; 99282

== ENCOUNTER → 2021-10-17 | Outpatient (CLI) | payer BC, SELFPAY ==
[2021-10-17 18:52] LABS: Microalbumin,Random Urine < 5.0 mg/L (NO RANGE EST.)
== END | disposition home or self-care (01) ==
LOC: LABSPEC 14:23
PROVIDERS: PCP Family Medicine; Referring Provider Family Medicine; Visit Provider Family Medicine
DX: N18.2 Chronic kidney disease, stage 2 (mild) (principal)
CPT/HCPCS: 82043; 82570

== ENCOUNTER 2021-10-20 14:00 | Outpatient (RCR) | payer BC, SELFPAY ==
--- NOTE | 2021-08-29 15:14 | HP.PTEVAL_ITS ---
Patient's Visit Information SHIMON CARLTON is a 61 year old M referred to Physical Therapy by Dr. Chuy Carlson MD with a diagnosis of THORACIC AND LUMBAR PAIN, DDD AND DJD. Date of Evaluation: 08/29/21 Physical Therapist: Heavenly Rodriguez PT, Cert MDT - Visit Plan Frequency: 2x /Week Duration: 4-6 Months Plan: AQUATIC THERAPY FOR PAIN RELIEF, GAIT TRAINING, POSTURE CORRECTION/STRENGTHENING, INSTRUCTION IN APPROPRIATE BODY MECHANICS AND ACTIVITY MODIFICATIONS. DLS STARTING WITH A NEUTRAL SPINE PROGRESSING ROM TOLERATED. CHAPINCITO LE ROM, STRETCHING AND STRENGTHENING. HEP INSTRUCTION. 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 Disability: NO. Present symptoms: THORACIC PAIN, CHAPINCITO LOW BACK PAIN, LEFT HIP PAIN. CHAPINCITO FOOT TINGLING L > RIGHT. REPORTS R FOOT TINGLING STARTED JUST RECENTLY BUT HE HASN'T TALK TO THE DOCTOR ABOUT THE SX'S IN EITHER OF HIS FEET. Present since: YEARS AGO. BUT ABOUT 3 MONTHS AGO BACK REALLY TIGHTENED UP FOR NO APPARENT REASON. Pain Scale: WORST 7/10, LEAST 0/10. Currently: LBP 4/10, LEFT HIP 1/10. Commenced as a result of: WALKING DOGS, JERKING AND GETTING PULLED DOWN. POWER LIFTING. Worse: WALKING, MOVING, TWISTING, STANDING, VACUUMING, MOPPING, SWEEPING, RAKING, CLEANING HOUSE. Better: IBUPROFEN, ICE. Disturbed sleep: YES. Previous history/Previous treatment: PHYSICAL THERAPY - LAST EPISODE OF CARE WITH PT WAS ABOUT 6 MONTHS AGO IN [place] WITH A [facility] THERAPIST - EX'S WERE WORKING BUT THEY'VE STOPPED WORKING. H/O WATER PT BEFORE HIP RPLM TOO. L HIP THR ABOUT 3 YEARS AGO. H/O CHIROPRACTIC TREATMENTS ENDING ABOUT 3 YEARS AGO. NO BACK SURGERY. KATRIN X 2 ABOUT 7 YEARS AGO WITHOUT BENEFIT. ACCUPUNCTURE FOR BACK ONCE - DIDN'T HELP. Coughing/sneezing/straining: POSTIVE. Gait: I CAN START OFF NORMAL IF NOT IN PAIN BUT VERY QUICKLY STARTS LIMPING ON R LE AND BACK PAIN INCREASES AND CONTINUES TO GET WORSE. Difficulty initiating urination: NO. BOWEL OR BLADDER DYSFUNCTION: JUST LEAKING. Accidents: NO. Unexplained weight loss: NO. Imaging: RECENT X-RAYS OF BACK AND HIP AT [facility] ABOUT A YEAR AGO. MRI OF THORACIC AND LUMBAR SPINE ABOUT A YEAR AGO. PATIENT REPORTS EZRA ORTHO TOLD HIM HIS L HIP LOOKS GOOD. ARTHRITIS IN SPINE AND MULTIPLE COMPRESSION FX'S IN THORACIC SPINE PER PATIENT REPORT. PMH/Recent major surgery: ACID REFLUX, DX WITH DIABETES RECENTLY BUT REPEAT BLOODWORK PENDING, HTN, DEPRESSION, METABOLIC SYNDROME, ALLERGIES. TRANSGENDER. REPORTS HE HAS HAD CHAPINCITO MASTECTOMY. STATES HE IS LEGALLY MALE. TRANSITIONED ABOUT 6 YEARS AGO AND STARTED IN 1981. OTHER: PATIENT REPORTS HE CAN NOT STAND UP FROM THE GROUND AND HE IS VERY CONCERNED ABOUT THIS. ALSO STATES. WHEN I GET UP IN THE MORNING IT HURTS TO BREATHE BECAUSE MY BACK IS SO TIGHT. - Objective Sitting/Standing Posture: POOR. FH. RSH'S. NO RELEVENT LATERAL SHIFT. Active Correction of posture: WORSE. Other Observations: INDEP GAIT WITH DECREASED CADANCE AND LIMP ON L LE. INDEP TRANSFER SIT TO STAND WITHOUT UE ASSIST BUT DIFFICULT. 30 SEC SIT TO STAND TEST: 10. Sensory deficit: CHAPINCITO LE LIGHT TOUCH SENSATION IS GROSSLY INTACT AND SYMMETRICAL. ROM deficit: TIGHT CHAPINCITO HS'S AND GASTROC SOLEUS COMPLEX'S. Motor deficit: CHAPINCITO LE'S GROSSLY 5/5 WITH MMT'ING. Dural Signs: POSITIVE LLE. Lumbar mvmt loss: flex - MOD. ext - STEPHANIE. R SG - STEPHANIE. L SG - STEPHANIE. PATIENT C/O INCREASED PAIN WITH LUMBAR CHAPINCITO SG TESTING. Core strength: POOR. Palpation: NO ACUTE LUMBAR, THORACIC OR HIP TENDERNESS. - Balance/Special Test Scores Oswestry Low Back Score: 14 - Goals Goal 1:: DECREASE C/O THORACIC, LUMBAR AND L HIP PAIN Goal Time Frame: 4-6 Weeks Goal 2:: IMPROVE PERSONAL CARE, LIFTING, WALKING, STANDING, SLEEP, SOCIAL LIFE, TRAVEL WORK/HOMEMAKING FUNCTION Goal Time Frame: 4-6 Weeks Goal 3:: PATIENT WILL DEMONSTRATED 13 REPS DURING 30 SEC SIT TO STAND TEST WITHOUT UE ASSIST TO DEMO IMPROVED LE FUNCTIONAL STRENGTH. Goal Time Frame: 4-6 Weeks Goal 4:: PATIENT WILL BE INDEP WITH HEP AND/OR GYM AND POOL EX PROGRAMS FOR CONTINUED IMPROVEMENT ONCE FORMAL PHYSICAL THERAPY CONCLUDES. Goal Time Frame: 4-6 Weeks - Anticipated Interventions Patient/Client Instruction: Educate patient on: Condition, Plan of Care, Risk Factors For the Purpose of:: To improve self management Therapeutic Exercise to Include: Strength training, Body mechanics, Postural training, Flexibilty training, Gait and locomotor training, Neuromotor development, In an aquatic setting, Dynamic Lumbar Stabilization, Scapular Strength/Stabilization For the Purpose of:: To decrease pain, To increase ROM, To improve muscle performance and motor function, To increase tolerance to activity/condition/position, To improve ability of physical actions for home/community/work/leisure, To improve gait and locomotor functions Thank you for the opportunity to evaluate your patient. For Medicare and Medicare HMO plans, please review the plan of care and approve it. It will need to be FAXED BACK to us at [phone] for Medicare purposes. For Medicare only, by signing this I certify the plan of care. Please let me know if there are questions or concerns regarding this plan of care. Physician Signature: Date:
--- NOTE | 2021-10-20 14:24 | HP.PTREVAL ---
Dr. Chuy Carlson MD, It has been my pleasure to treat SHIMON CARLTON over the last 9 visits for THORACIC AND LUMBAR PAIN, DDD AND DJD. Please see the progress note below for an update on the physical therapy plan of care! Subjective: PATIENT REPORTS HIS BACK MOBILITY HAS IMPROVED AND HE HAS LESS PAIN IN THE HIP SINCE STARTING PT. PATIENT REPORTS BEING ABLE TO GET ACCESS TO A POOL TO CONTINUE ON INDEP'LY AT THIS POINT. PATIENT REPORTS THE POOL FELT REALLY GOOD. Objective/Function: PATIENT WAS SEEN TODAY FOR RE-ASSESSMENT OF PROGRESS TOWARD THE SET PT GOALS AND THE NEED FOR FURTHER PHYSICAL THERAPY VS READINESS FOR DISCHARGE. ALL GOALS MET. L LE REDNESS OBSERVED TODAY AND PATIENT REPORTS HE HAD CELLULITIS. UPON EXAM TODAY: Dural Signs: NEGATIVE CHAPINCITO LE'S. Lumbar mvmt loss: flex - MIN. ext - MOD. R SG - STEPHANIE. L SG - STEPHANIE. PATIENT C/O INCREASED PAIN WITH LUMBAR CHAPINCITO SG TESTING. Plan Plan: D/C TO INDEP POOL EX. PATIENT AGREEABLE. Balance/Gait/Functional tests - Balance/Special Test Scores Oswestry Low Back Score: 7 30 Second Chair Rise Test Seconds: 13 Goals Goal 1:: DECREASE C/O THORACIC, LUMBAR AND L HIP PAIN Goal Time Frame: 4-6 Weeks Goal Progress: Goal Met Goal 2:: IMPROVE PERSONAL CARE, LIFTING, WALKING, STANDING, SLEEP, SOCIAL LIFE, TRAVEL WORK/HOMEMAKING FUNCTION Goal Time Frame: 4-6 Weeks Goal Progress: Goal Met Goal 3:: PATIENT WILL DEMONSTRATED 13 REPS DURING 30 SEC SIT TO STAND TEST WITHOUT UE ASSIST TO DEMO IMPROVED LE FUNCTIONAL STRENGTH. Goal Time Frame: 4-6 Weeks Goal Progress: Goal Met Goal 4:: PATIENT WILL BE INDEP WITH HEP AND/OR GYM AND POOL EX PROGRAMS FOR CONTINUED IMPROVEMENT ONCE FORMAL PHYSICAL THERAPY CONCLUDES. Goal Time Frame: 4-6 Weeks Goal Progress: Goal Met Anticipated Interventions Patient/Client Instruction: Educate patient on: Condition, Plan of Care, Risk Factors For the Purpose of:: To improve self management Therapeutic Exercise to Include: Strength training, Body mechanics, Postural training, Flexibilty training, Gait and locomotor training, Neuromotor development, In an aquatic setting, Dynamic Lumbar Stabilization, Scapular Strength/Stabilization For the Purpose of:: To decrease pain, To increase ROM, To improve muscle performance and motor function, To increase tolerance to activity/condition/position, To improve ability of physical actions for home/community/work/leisure, To improve gait and locomotor functions Please do not hesitate to contact me at [phone] by phone or if you have questions or concerns regarding this new plan of care! Sincerely, Heavenly Rodriguez, PT, Cert MDT
--- NOTE | 2022-02-10 12:33 | HP.PT.NRP ---
SHIMON CARLTON was seen in my office for initial evaluation on 08/29/21. The following Plan of Care was established for this patient: Initial Frequency: 2x /Week Initial Duration: 4-6 Months Patient/Client Instruction: Educate patient on: Condition, Plan of Care, Risk Factors For the Purpose of:: To improve self management Therapeutic Exercise to Include: Strength training, Body mechanics, Postural training, Flexibilty training, Gait and locomotor training, Neuromotor development, In an aquatic setting, Dynamic Lumbar Stabilization, Scapular Strength/Stabilization For the Purpose of:: To decrease pain, To increase ROM, To improve muscle performance and motor function, To increase tolerance to activity/condition/position, To improve ability of physical actions for home/community/work/leisure, To improve gait and locomotor functions This patient was last seen in our office 10/20/21. Pertinent comments regarding their Physical therapy will appear below: This patient has not returned to Physical Therapy and is appropriate to return to MD for further follow-up as needed. At this point I will be discontinuing this patient from physical therapy. I would be happy to see this patient again in the future if found appropriate by the physician. Thank you! Heavenly Rodriguez, PT, Cert MDT Balance/Gait/Functional tests - Balance/Special Test Scores Oswestry Low Back Score: 7 30 Second Chair Rise Test Seconds: 13
== END 2021-10-20 19:00 | disposition home or self-care (01) ==
LOC: PT 14:00
PROVIDERS: PCP Family Medicine; Referring Provider Family Medicine; Visit Provider Family Medicine
DX: M51.34 Other intervertebral disc degeneration, thoracic region (principal); M51.36 Other intervertebral disc degeneration, lumbar region
CPT/HCPCS: 97113; 97162; 97164

== ENCOUNTER 2022-01-12 14:13 | Outpatient (RCR) | payer BC, SELFPAY ==
--- NOTE | 2022-01-12 15:51 | HP.OTEVAL ---
Patient's Visit Information SHIMON CARLTON is a 61 year old M, referred to Occupational Therapy by Dr. Chuy Carlson MD, with a diagnosis of lymphedema LE. Date of Evaluation: 01/12/22 Occupational Therapist: Briseyda Martinez, ARMINDAR/Merna, CHT - Subjective This 61 year old male was seen for OT eval with dx of LE lymphedema- pt states he has struggled with swelling in legs since his 20s. pt states he has had cellulitis x1- pt states he has hx of Achilles replacement and left hip replacement-and vein sx- pt works as at the [employer] and standing for about 3 hours- on Sundays. legs are more swollen after- pt states he has tried compression socks but feels his legs are getting squeezed and they make his legs hurt more. pt would like to know what more he can do to mtg swelling and avoid cellulitis reoccurring. - Pain bilateral LE 0 Pain Intensity Range: 2 - Lymphedema (Circumferential Measure) Mid-foot: right 23.cm left 23.5cm Ankle: right 23cm left 32cm Lower calf: right 27cm left 29cm Largest calf: right 46cm left 46cm Below knee: right 42cm left 43cm - Lower Limb Functional Index Lower Extremity Functional Score: 45 - Goals Demonstrate adequate knowledge of self-massage by 2nd week: Yes Demonstrate adequate knowledge skin care/prec by 2nd week: Yes Demonstrate adequate knowledge therapeutic exercises by d/c: Yes Select approp compression garment w/donning/care/wear by d/c: Yes Voice need to replace compression garment every 4-6mo by dc: Yes - Rehabilitation General Assessment: pt demo with LE lymphedema- due to pts long hx of edema/ swelling and multiple left LE sx along with cellulitis- pt demo need for skilled OT services 2-3visits to ed, pt life long mtg of lymphedema and on appropriate compression socks (20-30mmHg) use of compression alternatives ( Velcro closure devices) along with lymph stimulation exercise and self manual lymph drainage massage. today pt was receptive on information provided and agreed to look into different brand of compression socks to assist in LE edema mtg. Due to long hx of swelling and trial of different compression socks with little or no successful mtg. pt would benefit from home vaso pneumatic device for life long mtg of LE swelling- pt demo understanding and agrees to POC. Rehabilitation Potential: Good - Anticipated Interventions Education re Diagnosis, Manual Lymph Drainage, Education re Life-long lymphedema Management, Education re Skin Care and Precautions, Education re Self Massage Techniques, Education re Correct Donning Tech,Care&Wearing Sched Comp Garments, Home Program - Visit Plan TEXT: Thank you for the opportunity to evaluate your patient. For Medicare and Medicare HMO plans, please review the plan of care and approve it. It will need to be FAXED BACK to us at [phone] for Medicare purposes. Please let me know if there are questions or concerns regarding this plan of care. Physician Signature: Date:
--- NOTE | 2022-04-06 16:09 | HP.OT.NRP ---
SHIMON CARLTON was seen in my office for initial evaluation on 01/12/22. The following Plan of Care was established for this patient: Anticipated Interventions: Education re Diagnosis, Manual Lymph Drainage, Education re Life-long lymphedema Management, Education re Skin Care and Precautions, Education re Self Massage Techniques, Education re Correct Donning Tech,Care&Wearing Sched Comp Garments, Home Program This patient was last seen in our office 01/12/22. Pertinent comments regarding their Occupational therapy will appear below: Pt was seen for OT gigi only. no further apts have been scheduled and due to time lapse in services pt d/c. At this point I will be discontinuing this patient from occupational therapy. I would be happy to see this patient again in the future if found appropriate by the physician. Thank you! Briseyda Martinez, OTR/L, CHT
== END 2022-01-12 19:00 | disposition home or self-care (01) ==
LOC: OT 14:13
PROVIDERS: PCP Family Medicine; Referring Provider Family Medicine; Visit Provider Family Medicine
DX: I89.0 Lymphedema, not elsewhere classified
CPT/HCPCS: 97166; 97530

== ENCOUNTER → 2022-01-21 | Outpatient (CLI) | payer BC, SELFPAY ==
[2022-01-21 12:41] LABS: Absolute Lymphocyte Count 1.93 X10^3/uL (0.83-4.51); Absolute Neutrophil Count 3.7 X10^3/uL (2.0-7.7); Basophil# 0.05 X10^3/uL; Basophil% 0.8 % (0-1); Eosinophil# 0.17 X10^3/uL; Eosinophils% 2.7 % (0-5); Hematocrit 45.6 % (40-54); Hemoglobin 14.2 g/dL (13.0-16.5); Lymphocyte # 1.93 X10^3/ul (0.83-4.51); Lymphocyte % 30.3 % (19-41); Mean Corp Hgb Conc 31.1 g/dL (32-36); Mean Corpuscular Hgb 26.5 pg (27.0-32.0); Mean Corpuscular Volume 85.2 fL (80-94); Mean Platelet Vol. 9.5 fl (6.2-12.0); Monocyte# 0.48 X10^3/uL; Monocyte% 7.5 % (0-10); NRBC Flagged by Analyzer 0 % (0-5); Neutrophil # 3.69 X10^3/uL (2.7-7.7); Neutrophil % 57.8 % (47-70); Platelet Count 251 K/mm3 (150-450); RBC Distribution Width CV 15.6 % (11.6-14.6); RBC Distribution Width SD 47.9 fl (35.1-43.9); Red Blood Count 5.35 M/mm3 (4.6-6.2); White Blood Count 6.4 K/mm3 (4.4-11.0)
[2022-01-21 14:10] LABS: AST(SGOT) 18 U/L (15-37); Alanine Aminotransfer ALT/SGPT 30 U/L (16-61); Albumin, Serum 3.4 g/dL (3.2-5.0); Alkaline Phosphatase 107 U/L (45-117); Anion Gap 7 (5-15); BUN 8 mg/dL (7-18); BUN/Creat Ratio 9.4 RATIO (10-20); Calcium,Total 9.9 mg/dL (8.5-10.1); Chloride 102 mmol/L (98-107); Cholesterol 203 mg/dL (200); Creatinine, Serum 0.85 mg/dL (0.70-1.30); EST Glomerular Filtration Rate 97 mL/min (>60); Est Glom Filt Rate - Afr Amer 117 mL/min (>60); Estradiol 45.5 pg/mL; Globulin 3.5 g/dL (2.2-4.2); Glucose 114 mg/dL (74-106); High Density Lipoprotein 36 mg/dL; Potassium 3.7 mmol/L (3.5-5.1); Protein, Total 6.9 g/dL (6.4-8.2); Sodium Level 137 mmol/L (136-145); Triglycerides 191 mg/dL; Very Low Density Lipoprotein 38 mg/dL (5-40)
== END | disposition home or self-care (01) ==
LOC: MFPLAB 10:13
PROVIDERS: PCP Family Medicine; Referring Provider Family Medicine; Visit Provider Family Medicine
DX: E11.9 Type 2 diabetes mellitus without complications (principal); E78.00 Pure hypercholesterolemia, unspecified; F64.0 Transsexualism
CPT/HCPCS: 36415; 80053; 80061; 82670; 84144; 84403; 85025

== ENCOUNTER 2022-05-08 16:07 | Outpatient (CLI) | payer BC, SELFPAY ==
[2022-05-08 17:29] LABS: Absolute Lymphocyte Count 2.41 X10^3/uL (0.83-4.51); Absolute Neutrophil Count 3.5 X10^3/uL (2.0-7.7); Basophil# 0.06 X10^3/uL; Basophil% 0.9 % (0-1); Eosinophil# 0.18 X10^3/uL; Eosinophils% 2.7 % (0-5); Hematocrit 45.6 % (40-54); Hemoglobin 14.5 g/dL (13.0-16.5); Lymphocyte # 2.41 X10^3/ul (0.83-4.51); Lymphocyte % 35.6 % (19-41); Mean Corp Hgb Conc 31.8 g/dL (32-36); Mean Corpuscular Hgb 27.1 pg (27.0-32.0); Mean Corpuscular Volume 85.2 fL (80-94); Mean Platelet Vol. 9.6 fl (6.2-12.0); Monocyte# 0.51 X10^3/uL; Monocyte% 7.5 % (0-10); NRBC Flagged by Analyzer 0 % (0-5); Neutrophil # 3.52 X10^3/uL (2.7-7.7); Platelet Count 297 K/mm3 (150-450); RBC Distribution Width CV 14.2 % (11.6-14.6); RBC Distribution Width SD 43.4 fl (35.1-43.9); Red Blood Count 5.35 M/mm3 (4.6-6.2); White Blood Count 6.8 K/mm3 (4.4-11.0)
[2022-05-08 18:03] LABS: ALB/GLOB Ratio 1.1 RATIO (0.9-2.4); AST(SGOT) 17 U/L (15-37); Alanine Aminotransfer ALT/SGPT 34 U/L (16-61); Albumin, Serum 3.7 g/dL (3.2-5.0); Alkaline Phosphatase 104 U/L (45-117); Anion Gap 6 (5-15); BUN 8 mg/dL (7-18); BUN/Creat Ratio 7.5 RATIO (10-20); Calcium,Total 10.4 mg/dL (8.5-10.1); Chloride 104 mmol/L (98-107); Creatinine, Serum 1.07 mg/dL (0.70-1.30); EST Glomerular Filtration Rate 74 mL/min (>60); Est Glom Filt Rate - Afr Amer 90 mL/min (>60); Globulin 3.3 g/dL (2.2-4.2); Glucose 113 mg/dL (74-106); Potassium 4.1 mmol/L (3.5-5.1); Sodium Level 139 mmol/L (136-145)
[2022-05-08 18:13] LABS: Vitamin D,25 Hydroxy 61.7 ng/mL
[2022-05-08 18:19] LABS: Hemoglobin A1c 6.4 % (3.8-5.6)
[2022-05-15 11:09] LABS: Testosterone, Free 13.28 ng/dL (5.00-21.00)
[2022-05-15 15:53] LABS: Testosterone, % Free 2.21 % (1.50-4.20); Testosterone, Total 601 ng/dL (264-916)
== END 2022-05-08 23:59 | disposition home or self-care (01) ==
LOC: MFPLAB 16:09
PROVIDERS: PCP Family Medicine; Visit Provider Family Medicine
DX: N18.2 Chronic kidney disease, stage 2 (mild) (principal); R73.03 Prediabetes; F64.0 Transsexualism
CPT/HCPCS: 36415; 80053; 82306; 83036; 83970; 84402; 84403; 85025

== ENCOUNTER → 2022-05-15 | Outpatient (CLI) | payer BC, SELFPAY ==
--- NOTE | 2022-05-15 16:22 | US_ITS ---
INDICATION: hx nodules. partial thyroidectomy. now elevated parathyroid and EXAMINATION: Ultrasound US Thyroid (eg thyroid, parathyroid, parotid) TECHNIQUE: Song scale and color doppler imaging was performed of the thyroid gland. COMPARISON: 09/16/2020 FINDINGS: RIGHT THYROID LOBE: Surgically absent.. Heterogenous tissue in the bed of the right thyroid lobe measures 1.5 x 0.7 x 0.4 cm and was not previously clearly identified. [ LEFT THYROID LOBE: 4.4 x 2.5 x 2.3 cm. Enterogenous echotexture. [Multiple cystic nodules again identified with slight increase in size since prior study. Largest nodule measures 1.5 x 1.1 x 0 6.6 cm in the inferior lobe. Lesion is anechoic with smooth margins and no calcifications, wider than tall. ISTHMUS: 2.5 mm. No thyroid nodules are present. US/Thyroid IMPRESSION: Multiple left thyroid nodules which have progressed slightly in size but remain subcentimeter except for the largest which measures up to 1.5 cm. This lesion is TIRADS Category 0 or nonsuspicious. Possible recurrent thyroid tissue in the bed of the surgically excised right lobe, tissue measures up to 1.5 cm. Electronically Signed: Bhaskar Valdez MD at 20:11 EST ,
== END | disposition home or self-care (01) ==
LOC: US 16:20
PROVIDERS: PCP Family Medicine; Visit Provider Family Medicine
DX: N25.81 Secondary hyperparathyroidism of renal origin (principal); E04.2 Nontoxic multinodular goiter; E89.0 Postprocedural hypothyroidism
CPT/HCPCS: 76536

== ENCOUNTER → 2022-05-27 | Outpatient (CLI) | payer BC, SELFPAY ==
[2022-05-27 16:39] LABS: Free T3 2.6 pg/mL (2.18-3.98); Thyroid Stim Hormone (TSH) 2.63 uIU/mL (0.358-3.74)
== END | disposition home or self-care (01) ==
LOC: LAB 15:35
PROVIDERS: PCP Family Medicine; Visit Provider Surgery
DX: E04.2 Nontoxic multinodular goiter (principal); Z90.09 Acquired absence of other part of head and neck
CPT/HCPCS: 36415; 84436; 84443; 84481

== ENCOUNTER → 2022-06-02 | Outpatient (CLI) | payer BC, SELFPAY ==
--- NOTE | 2022-06-02 14:59 | BD_ITS ---
STUDY: DUAL ENERGY X-RAY ABSORPTIOMETRY / DXA REASON FOR EXAM: Male, 62 years old. Partial thyroidectomy TECHNIQUE: Bone Mineral Density (BMD) measurements of lumbar spine and right hip were obtained. COMPARISON: None. FINDINGS: Lumbar Spine (L1-L4): g/cm2 (1.247) / T-score (2.5) / Z-score (3.6) Findings are suggestive of normal bone density with a low fracture risk. Right Femur Total: g/cm2 (1.247) / T-score (2.5) / Z-score (3.6) Right Femoral Neck: g/cm2 (1.043) / T-score (1.8) / Z-score (3.1) BD/Dexa Bone Density Study IMPRESSION: The patient is considered normal as outlined below according to World Marco Organization (WHO) criteria with a low fracture risk. Reference Information: The T-score is the number of standard deviations above or below the standard which is normal for young adults at their peak bone mineral density. The World Health Organization (WHO) interprets the T-scores as follows: Above -1 Normal bone density Between -1 and -2.5 Osteopenia Equal to / or below -2.5 Osteoporosis As a practical clinical guideline, osteopenia may be graded as follows: Mild -1 through -1.5 Moderate -1.6 through -2.0 Severe -2.1 through -2.4 The Z-score is the number of standard deviations above or below age-matched controls. A Z-score of less than -1.5 would be considered abnormal. References: 1. NIH Osteoporosis and Related Bone Diseases www osteo.org 2. International Society for Clinical Densitometry www iscd.org 3. National Osteoporosis Foundation www nof.org Electronically Signed: Nathan Cline MD at 13:24 EST ,
== END | disposition home or self-care (01) ==
PROVIDERS: PCP Family Medicine; Visit Provider Surgery
DX: Z90.09 Acquired absence of other part of head and neck (principal)
CPT/HCPCS: 77080

== ENCOUNTER → 2022-06-10 | Outpatient (CLI) | payer BC, SELFPAY ==
--- NOTE | 2022-06-10 14:53 | RAD_ITS ---
STUDY: X-RAY - RIGHT KNEE REASON FOR EXAM: Female, 62 years old. Right knee pain. No history of trauma. TECHNIQUE: 4 view(s) of the knee. COMPARISON: None. FINDINGS: Normal visualized distal femur. Normal visualized proximal tibia and fibula. Normal proximal tibiofibular articulation. There is mild degenerative arthrosis of the medial femorotibial compartment. Normal lateral femorotibial compartment. Normal patellofemoral articulation. There is no demonstrated joint effusion. The soft tissue structures are unremarkable. RAD/Knee 4 or More Views IMPRESSION: Degenerative arthrosis. Electronically Signed: Nathan Cline MD at 15:38 EST ,
== END | disposition home or self-care (01) ==
PROVIDERS: PCP Family Medicine; Referring Provider Family Medicine; Visit Provider Family Medicine
DX: M25.561 Pain in right knee (principal)
CPT/HCPCS: 73564

== ENCOUNTER → 2022-08-10 | Outpatient (CLI) | payer BC, SELFPAY ==
[2022-08-10 17:37] LABS: Absolute Lymphocyte Count 2.28 X10^3/uL (0.83-4.51); Absolute Neutrophil Count 3.5 X10^3/uL (2.0-7.7); Basophil# 0.07 X10^3/uL; Basophil% 1.1 % (0-1); Eosinophil# 0.12 X10^3/uL; Eosinophils% 1.8 % (0-5); Hematocrit 44.9 % (37-47); Hemoglobin 14.1 g/dL (12.0-15.0); Lymphocyte # 2.28 X10^3/ul (0.83-4.51); Lymphocyte % 34.9 % (19-41); Mean Corp Hgb Conc 31.4 g/dL (32-36); Mean Corpuscular Hgb 26.6 pg (27.0-32.0); Mean Corpuscular Volume 84.7 fL (81-99); Mean Platelet Vol. 9.7 fl (6.2-12.0); Monocyte# 0.47 X10^3/uL; Monocyte% 7.2 % (0-10); NRBC Flagged by Analyzer 0 % (0-5); Neutrophil # 3.52 X10^3/uL (2.7-7.7); Neutrophil % 53.8 % (47-70); Platelet Count 216 K/mm3 (150-450); RBC Distribution Width CV 14.4 % (11.6-14.6); RBC Distribution Width SD 43.8 fl (35.1-43.9); White Blood Count 6.5 K/mm3 (4.4-11.0)
[2022-08-10 17:57] LABS: ALB/GLOB Ratio 1.1 RATIO (0.9-2.4); AST(SGOT) 26 U/L (15-37); Alanine Aminotransfer ALT/SGPT 37 U/L (13-56); Albumin, Serum 3.6 g/dL (3.2-5.0); Alkaline Phosphatase 120 U/L (45-117); Anion Gap 2 (5-15); BUN 9 mg/dL (7-18); BUN/Creat Ratio 9.3 RATIO (10-20); Calcium,Total 10.2 mg/dL (8.5-10.1); Chloride 104 mmol/L (98-107); Creatinine, Serum 0.96 mg/dL (0.55-1.02); EST Glomerular Filtration Rate 62 mL/min (>60); Est Glom Filt Rate - Afr Amer 75 mL/min (>60); Globulin 3.4 g/dL (2.2-4.2); Glucose 145 mg/dL (74-106); Potassium 4.2 mmol/L (3.5-5.1); Sodium Level 134 mmol/L (136-145); Vitamin D,25 Hydroxy 66.1 ng/mL
== END | disposition home or self-care (01) ==
LOC: MFPLAB 16:15
PROVIDERS: PCP Family Medicine; Visit Provider Family Medicine
DX: F64.0 Transsexualism (principal); E55.9 Vitamin D deficiency, unspecified
CPT/HCPCS: 36415; 80053; 82306; 84403; 85025

== ENCOUNTER → 2022-11-30 | Outpatient (CLI) | payer BC, SELFPAY ==
--- NOTE | 2022-11-30 12:50 | RAD_ITS ---
EXAM: XR LEFT SHOULDER COMPLETE, 2 OR MORE VIEWS CLINICAL INDICATION: PAIN TECHNIQUE: 4 views. COMPARISON: No relevant prior studies available. FINDINGS: BONES/JOINTS: There are periarticular osteophytes projecting roughly 4 mm inferior to the narrowed AC joint, with mildly narrowing the rotator cuff interval but there is at least 1.2 cm between the superior left humeral head and the inferior margin of the acromion. No fracture or joint effusion or dislocation of the left shoulder. Well-maintained glenohumeral joint. No obvious joint effusion. Unremarkable left ribs and left lung. No sclerotic or destructive changes observed. SOFT TISSUES: Unremarkable. No soft tissue swelling or gas. No radiopaque foreign body. RAD/Shoulder min 2 Views IMPRESSION: Degenerative changes. No acute abnormality. Electronically Signed: Dulce Arthur MD at 8:25 EDT ,
== END | disposition home or self-care (01) ==
LOC: MTRAD 12:43
PROVIDERS: PCP Family Medicine; Referring Provider Family Medicine; Visit Provider Family Medicine
DX: M25.512 Pain in left shoulder (principal)
CPT/HCPCS: 73030

== ENCOUNTER → 2023-02-02 | Outpatient (CLI) | payer BC, SELFPAY ==
[2023-02-02 18:21] LABS: Progesterone Level 0.46 ng/mL (See Comment)
[2023-02-02 18:23] LABS: Estradiol 72.1 pg/mL; Thyroid Stim Hormone (TSH) 2.75 uIU/mL (0.358-3.74)
[2023-02-05 08:37] LABS: PTHIN 72.6 pg/mL (18.4-80.1)
[2023-02-05 15:19] LABS: Anion Gap 4 (5-15); BUN 7 mg/dL (7-18); BUN/Creat Ratio 7.2 RATIO (10-20); Calcium,Total 9.9 mg/dL (8.5-10.1); Chloride 104 mmol/L (98-107); Cholesterol 235 mg/dL (200); Creatinine, Serum 0.98 mg/dL (0.55-1.02); EST Glomerular Filtration Rate 61 mL/min (>60); Est Glom Filt Rate - Afr Amer 74 mL/min (>60); Glucose 116 mg/dL (74-106); High Density Lipoprotein 37 mg/dL; Potassium 4.3 mmol/L (3.5-5.1); Sodium Level 136 mmol/L (136-145); Triglycerides 273 mg/dL; Very Low Density Lipoprotein 55 mg/dL (5-40)
[2023-02-07 18:07] LABS: Testosterone, % Free 4.41 % (0.50-2.80); Testosterone, Free 27.69 ng/dL (0.10-0.85); Testosterone, Total 628 ng/dL (3-67)
== END | disposition home or self-care (01) ==
LOC: MFPLAB 15:14
PROVIDERS: PCP Family Medicine; Visit Provider Family Medicine
DX: N25.81 Secondary hyperparathyroidism of renal origin (principal); F64.9 Gender identity disorder, unspecified; E78.00 Pure hypercholesterolemia, unspecified
CPT/HCPCS: 36415; 80048; 80061; 82670; 83970; 84144; 84402; 84403; 84443

== ENCOUNTER 2023-02-04 15:30 | Outpatient (RCR) | payer BC, SELFPAY ==
--- NOTE | 2022-12-09 14:01 | HP.PTEVAL_ITS ---
Patient's Visit Information Visit Information Visit Information: SHIMON CARLTON is a 62 year old F referred to Physical Therapy by Dr. Ovi Marie MD with a diagnosis of CHRONIC LBP ,LUMBAR DDD. Date of Evaluation: 12/09/22 Physical Therapist: Rob Nuñez PT, Cert MDT, OCS Visit Plan Frequency: 2x /Week Duration: 4 Weeks Plan: PT INTERVETIONS DLS ,POSTURAL EX'S ,LE STRENGTHENING ,HIP STRENGTHENING ,LUMBAR /THORACIC ROM AND MODALTIES NEEDS Subjective Subjective: This 62 y/o female presents to physical therapy with chronic low back pain. This patient has had back pain several years . Patient has tried PT in past which has helped. Most recently , developed increase thoracic lumbar pain right . Seen DR Marie had no diagnostics. Patient has h/o back x-rays DDD and MRI. Aggravating symptoms worse with walking < 5mins 5,standing 20 mins ,bending and lifting. Pain described as occasional sharp pain and muscle spasms. Alleviating over counter teylonal resting sitting. Coughing/sneezing + . Denies paresthesia/tingling-. Bowel/bladder -. Pain affects sleeping -. Patient walking increasing to LS . Patient has had h/o THR left ~ 4years. Patient has not seen pain management. Patient pain affects QOL and function. Patient goals to less pain. VOCATION: retired [employer] SOCIAL: single Pain Right Back: Pain Intensity (Out of 10): 2 Pain Intensity Range: 10 Comment: thoracic lumbar Objective Objective: POSTURE: mild forward posture NEURO: denies paresthesia/tingling ,reflexes L3-4 ,L4-5,L5-S1 1/ 3 PALAPTION: unremarkable MMT: quads/hams 4/5 ,left hip 4/5 , ( peak force) right hip flexion 17.7 ,hip abduction 12.4 LUMBAR ROM : flexion min loss ,side glides mod loss with pain ,extension mod loss THORACIC ROM: flexion mod loss ,extension mod loss ,rotation mod loss pain FLEXABILITY: hamstrings MIN HIP FLEXION: 90 degrees Special Tests L/S Slump test left side: Negative L/S Slump test right side: Negative L/S Left Straight Leg Raise: Negative L/S Right Straight Leg Raise: Negative Balance/Special Test Scores Oswestry Low Back Score: 27 Goals Goal 1:: I with HEP for back Goal Time Frame: 4-6 Weeks Goal 2:: Patient to demonstrate 50% improvement with less pain and walk > 10mins Goal Time Frame: 4-6 Weeks Goal 3:: Patient to increase right hip peak force by 5-10 points to improve gait Goal Time Frame: 4-6 Weeks Goal 4:: Patient to improve lumbar/thoracic ROM for function of recovery for function Goal Time Frame: 4-6 Weeks Goal 5:: Patient to back oswestry score by 5 points or> to improve QOL and function. Goal Time Frame: 4-6 Weeks Goal 6:: Patient to improve ability to walk > 10-15mins to improve ADLS and function Goal Time Frame: 4-6 Weeks Rehabilitation Potential Physical Therapy Diagnosis: This patient has lumbar pain with chronic pain DDD with pain with motion ,and positioning ,weakness with right hip , with decrease ROM lumbar/thoracic worse with walking < less than 5 mins thus will benefit from skilled PT Rehabilitation Potential: Good Anticipated Interventions Patient/Client Instruction: Educate patient on: Condition and Plan of Care For the Purpose of:: To decrease pain, To decrease swelling/inflammation, To improve muscle performance and motor function, To improve ability to perform ADL's, To increase tolerance to activity/condition/position, To improve ability of physical actions for home/community/work/leisure, To improve health of tissue, To decrease soft tissue restriction, To increase flexibility/ROM, To reduce risk of recurrence, To prevent re-injury and To improve tolerance to ADL's Therapeutic Exercise to Include: Strength training, Endurance training, Balance training, Postural training, Flexibilty training, Gait and locomotor training and Dynamic Lumbar Stabilization For the Purpose of:: To decrease pain, To increase ROM, To improve muscle performance and motor function, To increase tolerance to activity/condition/position, To improve ability of physical actions for home/community/work/leisure, To improve gait and locomotor functions, To improve health of tissue, To decrease soft tissue restriction, To increase flexibility/ROM, To improve endurance and To improve balance TENS: Yes IF ES: Yes Cryotherapy (ice pack, ice massage): Yes Thermo therapy (hot pack): Yes Ultrasound (thermal/non thermal): Yes For the Purpose of:: To decrease pain, To increase ROM, To improve nutrient delivery to tissue, To increase oxygenation perfusion, To improve health of tissue and To decrease soft tissue restriction Text: Thank you for the opportunity to evaluate your patient. For Medicare and Medicare HMO plans, please review the plan of care and approve it. It will need to be FAXED BACK to us at [phone] for Medicare purposes. For Medicare only, by signing this I certify the plan of care. Please let me know if there are questions or concerns regarding this plan of ca re. Physician Signature: Date:
--- NOTE | 2022-12-29 13:00 | HP.PTEVAL2_ITS ---
Patient's Visit Information Visit Information Visit Information: SHIMON CARLTON is a 62 year old F referred to Physical Therapy by Dr. Ovi Marie MD with a diagnosis of LEFT SHOULDER PAIN. Date of Evaluation: 12/29/22 Physical Therapist: Rob Nuñez PT, Cert MDT, OCS Visit Plan Frequency: 2x /Week Duration: 4 Weeks Plan: PT INTERVETIONS RTC/SCAPULAR STRENGTHENING ,POSTURAL EX'S ,ROM EX'S ,MANUAL THERAPY JOINT MOBS AND MODLATIES Subjective Subjective: This 62 y/o female presents to physical therapy with left shoulder pain. Patient has had shoulder pain ~ 4months invidious onset of pain. Seen Dr x-rays showed bone spurs. Pain located global. Denies paresthesia/tingling . No medication. Aggravating factors OH activities ,moving with ADL ,activities above 90 degrees affects ADL's. Alleviating factors rest and moving. Pain affects sleeping . Patient has h/o right shoulder surgery, Patient pain affexcts QOL and function. Patient goals to decrease shoulder pain for function SOCIAL: single VOCATION: retired Pain Left Shoulder: Intensity: 7 Pain Intensity Range: 10 Objective Objective: POSTURE: rounded shoulders head forward PALPTION unremarkable NEURO: denies paresthesia/tingling AROM: shoulder flexion 130 degrees pain ,abduction scapular plane 140 degrees ,80 degrees ,IR T12 PROM: shoulder flexion 150 ,abduction 160 degrees ,ER 80 degrees MMT: infraspinatus 4/5 ,( peak force) supraspinatus 26.8 pain, deltoid 22.1 pain Special Tests Drop Sign - IS Test: Negative Empty Can - SS: Positive Belly Press - SupScap: Negative Neer - Impingement: Positive Shrug Sign - OA/Adhesive Capsulitis: Negative Goals Goal 1:: Patient to be I with HEP for shoulder Goal Time Frame: 4-6 Weeks Goal 2:: Patient to improve AROM shoulder flexion /abd 150 degrees to improve function above 90 for ADLS Goal Time Frame: 4-6 Weeks Goal 3:: Patient to improve peak force RTC/deltoid by 5-10 # to improve ADLS Goal Time Frame: 4-6 Weeks Goal 4:: Patient to demonstrate 50% improvement with less pain and improved function Goal Time Frame: 4-6 Weeks Goal 5:: Patient to improve quick dash by 5 points to improve QOL Goal Time Frame: 4-6 Weeks Rehabilitation Potential Physical Therapy Diagnosis: This patient has right shoulder pain with tendinopathy with impingement x-rays sub acromial space narrowing with spurs with pain with AROM and weakness impairs ADL's and housework tasks thus benefit from skilled PT Rehabilitation Potential: Good Anticipated Interventions Patient/Client Instruction: Educate patient on: Condition and Plan of Care For the Purpose of:: To decrease pain, To increase ROM, To improve muscle perfor [place] and motor function, To improve ability to perform ADL's, To increase tolerance to activity/condition/position, To improve ability of physical actions for home/community/work/leisure, To improve health of tissue, To decrease soft tissue restriction and To increase flexibility/ROM Therapeutic Exercise to Include: Strength training, Postural training, Flexibilty training and Active ROM For the Purpose of:: To decrease pain, To increase ROM, To improve muscle performance and motor function, To improve ability to perform ADL's, To improve ability of physical actions for home/community/work/leisure, To improve health of tissue, To decrease soft tissue restriction, To increase flexibility/ROM, To prevent re-injury and To improve tolerance to ADL's Manual Therapy Techniques to Include: Mobilization Comment: G-H For the Purpose of:: To decrease pain, To increase ROM, To improve health of tissue and To decrease soft tissue restriction TENS: Yes IF ES: Yes Cryotherapy (ice pack, ice massage): Yes Thermo therapy (hot pack): Yes Ultrasound (thermal/non thermal): Yes For the Purpose of:: To decrease pain, To increase ROM, To improve nutrient delivery to tissue, To increase oxygenation perfusion, To improve health of tissue and To decrease soft tissue restriction text: Thank you for the opportunity to evaluate your patient. For Medicare and Medicare HMO plans, please review the plan of care and approve it. It will need to be FAXED BACK to us at [phone] for Medicare purposes. For Medicare only, by signing this I certify the plan of care. Please let me know if there are questions or concerns regarding this plan of care. Physician Signature:____ Date:
--- NOTE | 2023-02-04 15:18 | HP.PTDCSUM ---
Discharge Summary D/C summary: It has been my pleasure to treat SHIMON CARLTON referred by Dr. Ovi Marie MD, with the diagnosis of CHRONIC LBP ,LUMBAR DDD for a total of 15 visit(s). Discharge Date: 02/04/23 Please see the following information for a summary of their discharge status. Subjective Subjective: Patient better overall spasms 100 % of time ,but does pain right lumbar ,certain rotation ,laying on side Pain Right Back: Pain Intensity (Out of 10): 5 Overall Improvement % Improvement: 75 Objective Objective/Function: POSTURE: mild forward posture NEURO: denies paresthesia/tingling ,reflexes L3-4 ,L4-5,L5-S1 1/ 3 PALAPTION: unremarkable MMT: quads/hams 4/5 ,left hip 4/5 , ( peak force) right hip flexion 52.5 ,hip abduction 22.4 , 54.3 LUMBAR ROM : flexion min loss ,side glides mod loss with pain ,extension mod loss THORACIC ROM: flexion mod loss ,extension mod loss ,rotation mod loss pain FLEXABILITY: hamstrings MIN HIP FLEXION: 90 degrees Goals Goal 1:: I with HEP for back Goal Progress: Goal Met Goal 2:: Patient to demonstrate 50% improvement with less pain and walk > 10mins Goal Progress: Goal Met Goal 3:: Patient to increase right hip peak force by 5-10 points to improve gait Goal Progress: Goal Met Goal 4:: Patient to improve lumbar/thoracic ROM for function of recovery for function Goal Progress: Progressing Goal 5:: Patient to back oswestry score by 5 points or> to improve QOL and function. Goal Progress: Progressing Goal 6:: Patient to improve ability to walk > 10-15mins to improve ADLS and function Goal Progress: Progressing Plan Plan: D/C to HEP D/C Information Discharge Comments: HEP d/c sentence: If there are questions or concerns regarding this patient's physical therapy, please feel free to call me at [phone]. Thank you for the referral of this patient. Sincerely, Rob Nuñez PT, Cert MDT, OCS Balance/Gait/Functional tests Balance/Special Test Scores Oswestry Low Back Score: 7 Quick DASH Score: 40.0000 Improvement % Improvement: 75
--- NOTE | 2023-02-04 15:39 | HP.PTDCS(2) ---
Discharge Summary D/C Summary: It has been my pleasure to treat SHIMON CARLTON referred by Dr. Ovi Marie MD, with the diagnosis of LEFT SHOULDER PAIN for a total of 9 visit(s). Discharge Date: 02/04/23 Please see the following information for a summary of their discharge status. Subjective Subjective: patient reports pain ,maybe stronger Overall Improvement % Improvement: 20 Objective Objective/Function/Assessment: POSTURE: rounded shoulders head forward PALPTION unremarkable NEURO: denies paresthesia/tingling AROM: shoulder flexion 142 degrees pain ,abduction scapular plane 140 degrees ,80 degrees ,IR T7 PROM: shoulder flexion 150 ,abduction 160 degrees ,ER 90 degrees MMT: infraspinatus 4/5 ,( peak force) supraspinatus 26.8 pain, deltoid 22.1 pain Goals Patient Goals: Improve Mobility, Improve Function, Decrease Pain, Alleviate Pain, Improve ROM and Sleep Normal Goal 1:: Patient to be I with HEP for shoulder Goal Progress: Goal Met Goal 2:: Patient to improve AROM shoulder flexion /abd 150 degrees to improve function above 90 for ADLS Goal Progress: Progressing Goal 3:: Patient to improve peak force RTC/deltoid by 5-10 # to improve ADLS Goal Progress: Progressing Goal 4:: Patient to demonstrate 50% improvement with less pain and improved function Goal Progress: Progressing Goal 5:: Patient to improve quick dash by 5 points to improve QOL Goal Progress: Goal Met Plan Plan: D/C to hep D/C Information Discharge Comments: HEP d/c sentence: If there are questions or concerns regarding this patient's physical therapy, please feel free to call me at [phone]. Thank you for the referral of this patient. Sincerely, Rob Nuñez, PT, Cert MDT, OCS Balance/Special Test Scores Improvement % Improvement: 20
== END 2023-02-04 19:00 | disposition home or self-care (01) ==
LOC: PT 15:30
PROVIDERS: PCP Family Medicine; Referring Provider Family Medicine; Visit Provider Family Medicine
DX: M25.512 Pain in left shoulder (principal); M51.36 Other intervertebral disc degeneration, lumbar region
CPT/HCPCS: 97110; 97162; 97530

== ENCOUNTER → 2023-05-17 | Outpatient (CLI) | payer BC, SELFPAY ==
--- NOTE | 2023-05-17 15:52 | US_ITS ---
STUDY: THYROID ULTRASOUND REASON FOR EXAM: Female, 63 years old. follow up thyroid nodule TECHNIQUE: Ultrasound evaluation of the thyroid was performed with real-time and static reyes-scale imaging. COMPARISON: Thyroid ultrasound dated May 15, 2022 FINDINGS: RIGHT LOBE: The right lobe has previously been surgically resected. LEFT LOBE: The left lobe of the thyroid gland measures 5.0 x 2.5 x 2.5 cm, previously measuring 4.4 x 2.5 x 2.3 cm, indicating interval enlargement. Redemonstration of 4 dominant nodules scattered throughout the left lobe with the largest measuring 1.5 cm in the midpole representing an increase of 5 mm in size from is previous measurement. 3 additional nodules are 1 cm in size which represents an increase of 2 mm up to 5 mm from prior measurements. The nodules are mixed cystic and solid and some are hypoechoic and completely solid. Redemonstration of diffuse heterogeneity and multinodular appearance of the left lobe consistent with goiter. ISTHMUS: Surgically resected The regional lymph nodes are normal. US/Thyroid IMPRESSION: 1. Multinodular goiter of the left lobe. Mild interval enlargement of the left lobe due to increase size of the hyperplastic/adenomatous nodules Thyroid nodule reference/consensus statement: * The [place] [employer] of [employer] Tabulating Supervisor (AACE) in collaboration with the [employer] Endocr[employer] (SELWYN) and the Thyroid Association (ETA) published guidelines for the diagnosis and management of thyroid nodules. Biopsy of any solid and hypoechoic nodule larger than 1 cm in diameter. Thyroid nodules of any size undergo biopsy if the patient has been exposed to irradiation, has a family history of medullary carcinoma or multiple endocrine neoplasia, or has previously undergone partial thyroidectomy for thyroid cancer or if an elevated calcitonin level is present. * The AACE/SELWYN/ETA guidelines recommend biopsy of nodules of any size with marked hypoechogenicity, irregular or microlobulated margins, a taller than wide configuration (anteroposterior dimension greater than transverse dimension), microcalcifications, or chaotic arrangement of intranodular vascular images or chaotic intranodular vascular spots. These guidelines recommend biopsy independent of size if ultrasonography suggests the presence of metastatic lymph nodes or if extracapsular growth is noted in the nodule. They recommend biopsy of the solid component of all complex cystic nodules because of the risk of cystic papillary carcinoma. * They further suggest that nodules that are hot on scintigraphy do not require biopsy. -Current Guidelines for the Managemen of Thyroid Nodules. Dick Westfall MD, CAL, [employer]. Endocr Pract. 2012; 18(4): 596-599. Electronically Signed: Chato Jenkins MD at 10:30 EST ,
--- OUTSIDE RECORDS SUMMARY | 2023-05-17 16:10 | XMS RPT_ITS | CCD ---
Author Name Unknown Address [address] [place] [address] Organization [facility] Care Team Providers Care Home Day Care Provider Name Role Phone Rashel Rodriguez MD Unavailable [phone] PROVIDER, UNKNOWN Attending Unavailable PROVIDER, UNKNOWN Admitting Unavailable PATIENT, SELF Referring Unavailable AYAKA REYES Referring Unavailable SHARON VIGIL Primary Care Unavailable SHARON VIGIL Primary Care Unavailable AYAKA REYES Attending Unavailable Allergies Allergy Classification Reported Allergen(s) Allergy Type Date of Onset Reaction(s) Facility (1 source) amoxicillin Drug Allergy 4 [facility] Work Phone: (1 source) sulfacetamide Drug Allergy 4 skin rash [facility] Work Phone: (1 source) Sulfonamides (Antibiotic); Translations: [SULFA ANTIBIOTICS] Propensity to adverse reactions to drug (disorder) 6 [facility] ([facility] sources) AMOXICILLIN-POT CLAVULANATE; Translations: [AMOXICILLIN-POT CLAVULANATE] Propensity to adverse reactions to drug (disorder) 0 [facility] (1 source) Sulfonamides (Antibiotic); Translations: [SULFA (SULFONAMIDE ANTIBIOTICS)] Propensity to adverse reactions to drug (disorder) 6 [facility] Repository Medications Completed/Discontinued Medications Medication Drug Class(es) Dates Sig (Normalized) Sig (Original) acetaminophen 325 mg / oxyCODONE hydrochloride 5 mg oral tablet (1 source) Opioid Agonist Start: 12-19-2013 PERCOCET 5-325 MG TABS as needed for pain. OXYCODONE-ACETAMIN OPHEN [id number] Noah Mcclain MD cetirizine hydrochloride 10 mg oral tablet (1 source) Histamine-1 Receptor Antagonist Start: 05-11-2013 CETIRIZINE HCL 10 MG TABS 1 tablet daily CETIRIZINE HCL [id number] Noah Mcclain MD esomeprazole 40 mg delayed release oral capsule (1 source) Proton Pump Inhibitor Start: 05-11-2013 NEXIUM 40 MG CPDR 1 Tablet daily ESOMEPRAZOLE MAGNESIUM [id number] Noah Mcclain MD FLUoxetine 10 mg oral capsule (1 source) Serotonin Reuptake Inhibitor Start: 05-11-2013 FLUOXETINE HCL (PMDD) 10 MG CAPS 1 capsule daily FLUOXETINE HCL (PMDD) [id number] Noah Mcclain MD gabapentin 300 mg oral capsule (1 source) Anti-epileptic Agent Start: 05-11-2013 GABAPENTIN 300 MG CAPS 2 tablets at bedtime GABAPENTIN [id number] Noah Mcclain MD nabumetone 750 mg oral tablet (1 source) Nonsteroidal Anti-inflammatory Drug Start: 01-18-2018 NABUMETONE 750 MG TABS twice a day NABUMETONE [id number] Rashel Rodriguez MD naproxen 500 mg oral tablet (1 source) Nonsteroidal Anti-inflammatory Drug Start: 12-19-2013 take 1 tablet by mouth twice daily at mealtime NAPROSYN 500 MG TABS Take 1 tablet by mouth 2 times a day with food NAPROXEN [id number] Noah Mcclain MD Problems Active Problems Problem Classification Problem Date Documented Date Episodic/Chronic Joint disorders and dislocations; trauma-related (1 source) Chondromalacia patellae, right knee; Translations: [Chondromalacia patellae, right knee] Onset: 01-18-2018 01-20-2018 Chronic Osteoarthritis (1 source) Osteoarthritis of hip; Translations: [Unilateral primary osteoarthritis, left hip] Onset: 01-18-2018 01-20-2018 Chronic Other female genital disorders (1 source) Abnormal uterine and vaginal bleeding, unspecified; Translations: [Abnormal uterine bleeding (AUB)] Onset: 04-29-2023 Chronic Unclassified (2 sources) Body mass index 40+ - severely obese; Translations: [Body mass index (BMI) 40.0-44.9, adult] Onset: 01-18-2018 01-20-2018 Chronic Past or Other Problems Problem Classification Problem Date Documented Da te Episodic/Chronic Unclassified (1 source) Problem Results Test Name Value Interpretation Reference Range Facil ity Vital Signs Date Time Vital Sign Value Performing Clinician Facility NEGATED: Highlighted [id number] 15:15-0400 BMI (Body Mass Index) 42.42 kg/m2 Sam Dagy RUBBER FLAP CUTTER [facility] Work Phone: NEGATED: Highlighted [id number] 15:15-0400 BP Diastolic 81 mm[Hg] Sam Dagy RUBBER FLAP CUTTER [facility] Work Phone: NEGATED: Highlighted [id number] 15:15-0400 BP Diastolic 86 mm[Hg] Sam Dagy RUBBER FLAP CUTTER [facility] Work Phone: NEGATED: Highlighted [id number] 15:15-0400 BP Systolic 148 mm[Hg] Sam Dagy RUBBER FLAP CUTTER [facility] Work Phone: NEGATED: Highlighted [id number] 15:15-0400 BP Systolic 155 mm[Hg] Sam Dagy RUBBER FLAP CUTTER [facility] Work Phone: NEGATED: Highlighted [id number] 15:15-0400 Height 172.72 cm Sam Dagy RUBBER FLAP CUTTER [facility] Work Phone: NEGATED: Highlighted [id number] 15:15-0400 Height 173 cm Sam Dagy RUBBER FLAP CUTTER [facility] Work Phone: NEGATED: Highlighted [id number] 15:15-0400 Pulse (Heart Rate) 54 /min Sam Dagy RUBBER FLAP CUTTER [facility] Work Phone: NEGATED: Highlighted [id number] 15:15-0400 Weight 126.1 kg Sam Dagy RUBBER FLAP CUTTER [facility] Work Phone: NEGATED: Highlighted [id number] 15:15-0400 Weight 126 kg Sam Dagy RUBBER FLAP CUTTER [facility] Work Phone: Encounters Encounter Date Encounter Type Care Provider Facility Start: 04-29-2023 End: 04-29-2023 ambulatory AYAKA MARIANA Facility:[facility] Start: 04-22-2023 End: 04-22-2023 ambulatory SHARON VIGIL Facility:[facility] Start: 01-18-2018 End: 01-20-2018 Patient encounter procedure Rashel Rodriguez MD Work Phone: [facility] Work Phone: Start: 10-07-2017 End: 10-07-2017 ambulatory UNKNOWN PROVIDER Facility:[facility] Procedures Date Procedure Procedure Detail Performing Clinician Start: 06-25-2020 Follow-up visit Start: 01-18-2018 End: 01-20-2018 Blood pressure outside of normal parameters - follow-up not documented Rashel Rodriguez MD Work Phone: Start: 01-18-2018 End: 01-20-2018 BMI outside of normal parameters - no follow-up plan/reason not given Rashel Rodriguez MD Work Phone: Start: 01-18-2018 End: 01-20-2018 Current medications documented Rashel Rodriguez MD Work Phone: Start: 01-18-2018 End: 01-20-2018 Osteoarthritis assess Rashel Herzog Work Phone: Start: 01-18-2018 End: 01-20-2018 Pain assessment documented as positive - follow-up documented Rashel Rodriguez MD Work Phone: Start: 01-18-2018 End: 01-20-2018 Tobacco screening or cessation counseling not performed - unknown reason Rashel Rodriguez MD Work Phone: Plan of Treatment Date Care Activity Detail Author [facility] Work Phone: Immunizations Immunization Date Immunization Notes Care Provider Carol kennedy No information available. Sam Tate LPN [facility] Work Phone: Payers Date Payer Category Payer Unknown [id number] 1960 Unknown [id number] Social History Date Type Detail Facility Start: 01-20-2018 End: 01-20-2018 Assertion Unknown if ever smoked [facility] Work Phone: NEGATED: Highlighted rowStart: 01-18-2018 End: 01-18-2018 Employment detail OCCUPATION#1 [employer] [facility] Work Phone: Progress note 04-29-2023 Note Date & Type Note Facility 04-29-2023 Note HNO ID: [id number] Author: Olivia Washburn RDMS Service: ? Author Type: Hydraulic Press Operator Type: Progress Notes Filed: 04/29/2023 3:05 PM Note Text: Radiology Service Progress Note PATIENT NAME: Shimon Villagomez DATE OF SERVICE: April 29, 2023 TIME: 3:05 PM PATIENT IDENTITY VERIFICATION COMPLETED USING TWO (2) IDENTIFIERS: Name and Date of confirmed by patient verbally. FALL SCREENING: Has the patient had 2 falls in the last year or 1 fall with injury or currently using an Ambulatory Assistive Device (Walker, Cane, Wheelchair, Crutches, etc.)? No PATIENT GENDER DATA: Male PATIENT RELEVANT IMPLANT DATA REVIEWED: Not Applicable RADIOLOGY DEPARTMENT: Ultrasound PERIPHERAL IV DATA: Not applicable SIGNED BY: Olivia Washburn RDMS April 29, 2023 3:05 PM [facility] Progress note 04-22-2023 Note Date & Type Note Facility 04-22-2023 Note HNO ID: [id number] Author: Ayaka Reyes MD Service: ? Author Type: Physician Type: Progress Notes Filed: 04/22/2023 2:47 PM Note Text: Embedded Developer offered: Patient accepts, visit chaperoned by Inocencio Casanova LPN. Shimon Villagomez is a 63 year old female who presents for evaluation of PMB s/p ablation in 2007.Bleeding is sporadic and scant with spots on wiping on ~ 4 occasions. OB History T0 L0 SAB0 IAB0 Ectopic0 Multiple0 Live Births0 Financial Sales Associate History LMP: 04/29/2007, Ablation Age at Menarche: Age at First : Age at Menopause: Financial Sales Associate History Comments: Sexual Activity: Never; No partner data on record; Pt has had a ablation Contraception: No contraception data on record PAST MEDICAL HISTORY Diagnosis Date Acute gastritis without mention of hemorrhage Environmental allergies Esophageal reflux Gastroesophageal reflux Esophagitis, unspecified Iron deficiency anemia, unspecified -not since uterine ablation Nontoxic uninodular goiter RIGHT PMH - PAST MEDICAL HISTORY OF arrhythmias. av node reentry PMH - PAST MEDICAL HISTORY OF Muscle Spasms in Back Stress Varicose veins of legs PAST SURGICAL HISTORY Procedure Laterality Date ADENOIDECTOMY PRIMARY Adenoidectomy CHOLECYSTECTOMY 06/03/2014 COLONOSCOPY FLX DX W/COLLJ SPEC WHEN PFRMD 05/06/2006 X-2 EGD TRANSORAL BIOPSY SINGLE/MULTIPLE 05/06/2006 HYSTEROSCOPY, DIAGNOSTIC (SEPARATE 05/09/2007 Hysteroscopy/Ablation/DANDC LIGJ DIVJ AND/EXCJ VARICOSE VEIN CLUSTER 1 LEG 05/03/2010 Varicose Vein Surgery MASTECTOMY, SIMPLE, COMPLETE 06/2016 OPEN REPAIR OF ROTATOR CUFF ACUTE 08/01/2013 Rotator cuff repair PAST SURGICAL HISTORY OF 12/01/2004 cardiac ablation S ACHILLES TENDON W/DOMINIC,19.5CM 06/03/2013 THYROIDECTOMY TOTAL/COMPLETE 05/03/2008 loebectomy TONSILLECTOMY PRIMARY/SECONDARY Tonsillectomy TOTAL HIP REPLACEMENT Left 04/2019 FAMILY HISTORY Problem Relation Age of Onset Cancer Mother LUNG COPD Sister COPD Brother Lung Cancer Brother Diabetes Maternal Grandmother Cancer Paternal Grandmother BONE Cancer Paternal Grandfather Stomach Cancer Maternal Uncle LUNG Cancer Paternal Aunt LUNG Social History Tobacco Use Smoking status: Former Packs/day: 1.50 Years: 25.00 Additional pack years: 0.00 Total pack years: 37.50 Types: Cigarettes Quit date: 06/03/1998 Years since quittin.9 Smokeless tobacco: Never Substance Use Topics Alcohol use: No Drug use: No Current Outpatient Medications Medication Sig testosterone undecanoate (KYZATREX) 100 mg capsule Take by mouth. metFORMIN (GLUCOPHAGE) 1,000 mg tablet Take 1,000 mg by mouth daily with breakfast. bisoprolol (ZEBETA) 5 mg tablet Take 5 mg by mouth once daily. DULoxetine (CYMBALTA) 60 mg capsule Take 60 mg by mouth once daily. cariprazine (VRAYLAR) 1.5 mg capsule Take by mouth once daily. ergocalciferol, vitamin D2, (VITAMIN D2 ORAL) Take by mouth. FLUOXETINE HCL (PROZAC ORAL) Take by mouth once daily. esomeprazole mag trihydrate(NEXIUM 40 MG CAP) Take one(1) capsule daily. cetirizine hcl(ZYRTEC 10 MG TAB) Take one(1) tablet daily. NAPROXEN ORAL Take by mouth twice daily. gabapentin (NEURONTIN) 100 mg ORAL capsule Take 300 mg by mouth once daily. No current facility-administered medications for this visit. Allergies As of Date: 04/22/2023 Allergen Noted Reaction SULFA (SULFONAMIDE ANTIBIOTICS) 05/15/2005 Rash Fully Assessed 04/22/2023 REVIEW OF SYSTEMS Abdomen: No bloating, early satiety, indigestion, or increased flatulence. No abdominal pain, nausea, vomiting, diarrhea, or constipation. Bladder: No dysuria, gross hematuria, urinary frequency, urinary urgency, or incontinence. Breast: bilateral mastectomyelective trans-operation . Expanded ROS: N/A Allergies and current medication updated:Yes EXAM: BP 132/90 Wt 262 lb (118.8kg) LMP 04/29/2007 GENERAL: pleasant, female in no apparent distress ABDOMEN: soft, non-tender, and no masses PELVIC: external genitalia normal, normal Bartholin's glands, urethra, Caruthers's glands, no vulvar lesions, no cervical lesions, good vaginal support, physiologic discharge present, normal appearing perineal body and perianal region BIMANUAL: uterus normal size, shape and consistency, no adnexal masses, and non-tender NEURO: alert and oriented x3,exam grossly non-focal EXTREMITIES: normal ASSESSMENT AND PLAN: Encounter Diagnosis ICD-10-CM 1. Screening for cervical cancer Z12.4 2. Special screening examination for human papillomavirus (HPV) Z11.51 3. Abnormal uterine bleeding (AUB) N93.9 PMB post ablation/hx of testosterone tx PLAN: pap/HPV Pelvic utrasound Ayaka Reyes MD [facility] Advance Directives There may be information available, but it has not been provided by the sender. No Advanced Directives Records FoundNo Advanced Directives Records FoundNo Advanced Directives Records Found Assessments There may be information available, but it has not been provided by the sender. Review of System There may be information available, but it has not been provided by the sender. Family History There may be information available, but it has not been provided by the sender.No Family History Records FoundNo Family History Records FoundNo Family History Records Found Summary Purpose Additional Source Comments (unrecognized sect ion and content) No Status Records FoundNo Status Records FoundNo Status Records Found INFORMATION SOURCE (unrecogn ized section and content) DATE CREATED AUTHOR AUTHOR'S EBONIE ATION 06/05/2021 [facility] DATE CREATED AUTHOR AUTHOR'S EBONIE ATION 05/05/2023 [facility] FOR RECORDS PERTAINING TO PATIENTS WHO ARE OR HAVE BEEN ENROLLED IN A CHEMICAL DEPENDENCY/SUBSTANCEABUSE PROGRAM, SOME INFORMATION MAY BE OMITTED. This clinical summary was aggregated from multiple sources. Caution should be exercised in using it in the provision of clinical care. This summary normalizes information from multiple sources, and as a consequence, information in this document may materially change the coding, format and clinical context of patient data. In addition, data may be omitted in some cases. CLINICAL DECISIONS SHOULD BE BASED ON THE PRIMARY CLINICAL RECORDS. [facility] [employer] [facility]. provides no warranty or guarantee of the accuracy or completeness of information in this document.
== END | disposition home or self-care (01) ==
LOC: US 15:52
PROVIDERS: PCP Family Medicine; Referring Provider Surgery; Visit Provider Surgery
DX: E04.1 Nontoxic single thyroid nodule (principal)
CPT/HCPCS: 76536

== ENCOUNTER → 2023-06-14 | Outpatient (CLI) | payer BC, SELFPAY ==
--- OUTSIDE RECORDS SUMMARY | 2023-06-14 13:55 | XMS RPT_ITS | CCD ---
Author Name Unknown Address [address] [place] [address] Organization [facility] Care Team Providers Care Line Lead Name Role Phone Rashel Rodriguez MD Unavailable [phone] PROVIDER, UNKNOWN Attending Unavailable PROVIDER, UNKNOWN Admitting Unavailable PATIENT, SELF Referring Unavailable AYAKA REYES Referring Unavailable SHARON VIGIL Primary Care Unavailable SHARON VIGIL Primary Care Unavailable AYAKA REYES Attending Unavailable Allergies Allergy Classification Reported Allergen(s) Allergy Type Date of Onset Reaction(s) Facility (1 source) amoxicillin Drug Allergy 4 [place] Work Phone: (1 source) sulfacetamide Drug Allergy 4 skin rash [facility] Work Phone: (1 source) Sulfonamides (Antibiotic); Translations: [SULFA ANTIBIOTICS] Propensity to adverse reactions to drug (disorder) 6 [facility] ([facility] sources) AMOXICILLIN-POT CLAVULANATE; Translations: [AMOXICILLIN-POT CLAVULANATE] Propensity to adverse reactions to drug (disorder) 0 [facility] (1 source) Sulfonamides (Antibiotic); Translations: [SULFA (SULFONAMIDE ANTIBIOTICS)] Propensity to adverse reactions to drug (disorder) 6 [facility] Repository Medications Completed/Discontinued Medications Medication Drug Class(es) Dates Sig (Normalized) Sig (Original) acetaminophen 325 mg / oxyCODONE hydrochloride 5 mg oral tablet (1 source) Opioid Agonist Start: 12-19-2013 PERCOCET 5-325 MG TABS as needed for pain. OXYCODONE-ACETAMIN OPHEN [id number] Noah Mcclain MD cetirizine hydrochloride 10 mg oral tablet (1 source) Histamine-1 Receptor Antagonist Start: 05-11-2013 CETIRIZINE HCL 10 MG TABS 1 tablet daily CETIRIZINE HCL [id number] Noah Mcclain MD esomeprazole 40 mg delayed release oral capsule (1 source) Proton Pump Inhibitor Start: 05-11-2013 NEXIUM 40 MG CPDR 1 Tablet daily ESOMEPRAZOLE MAGNESIUM [id number] Noah Mcclain MD FLUoxetine 10 mg oral capsule (1 source) Serotonin Reuptake Inhibitor Start: 05-11-2013 FLUOXETINE HCL (PMDD) 10 MG CAPS 1 capsule daily FLUOXETINE HCL (PMDD) [id number] Noah Mcclain MD gabapentin 300 mg oral capsule (1 source) Anti-epileptic Agent Start: 05-11-2013 GABAPENTIN 300 MG CAPS 2 tablets at bedtime GABAPENTIN [id number] Noah Mcclain MD nabumetone 750 mg oral tablet (1 source) Nonsteroidal Anti-inflammatory Drug Start: 01-18-2018 NABUMETONE 750 MG TABS twice a day NABUMETONE [id number] Rashel Rodriguez MD naproxen 500 mg oral tablet (1 source) Nonsteroidal Anti-inflammatory Drug Start: 12-19-2013 take 1 tablet by mouth twice daily at mealtime NAPROSYN 500 MG TABS Take 1 tablet by mouth 2 times a day with food NAPROXEN [id number] Noah Mcclain MD Problems Active Problems Problem [...] Sign Value Performing Clinician Facility NEGATED: Highlighted [id number] 15:15-0400 BMI (Body Mass Index) 42.42 kg/m2 Sam Dagy VOCATIONAL ADVISER [facility] Work Phone: NEGATED: Highlighted [id number] 15:15-0400 BP Diastolic 81 mm[Hg] Sam Dagy VOCATIONAL ADVISER [facility] Work Phone: NEGATED: Highlighted [id number] 15:15-0400 BP Diastolic 86 mm[Hg] Sam Dagy VOCATIONAL ADVISER [facility] Work Phone: NEGATED: Highlighted [id number] 15:15-0400 BP Systolic 148 mm[Hg] Sam Dagy VOCATIONAL ADVISER [facility] Work Phone: NEGATED: Highlighted [id number] 15:15-0400 BP Systolic 155 mm[Hg] Sam Dagy VOCATIONAL ADVISER [facility] Work Phone: NEGATED: Highlighted [id number] 15:15-0400 Height 172.72 cm Sam Dagy VOCATIONAL ADVISER [facility] Work Phone: NEGATED: Highlighted [id number] 15:15-0400 Height 173 cm Sam Dagy VOCATIONAL ADVISER [facility] Work Phone: NEGATED: Highlighted [id number] 15:15-0400 Pulse (Heart Rate) 54 /min Sam Dagy VOCATIONAL ADVISER [facility] Work Phone: NEGATED: Highlighted [id number] 15:15-0400 Weight 126.1 kg Sam Dagy VOCATIONAL ADVISER [facility] Work Phone: NEGATED: Highlighted [id number] 15:15-0400 Weight 126 kg Sam Dagy VOCATIONAL ADVISER [facility] Work Phone: Encounters Encounter Date Encounter Type Care Provider Facility Start: 04-29-2023 End: 04-29-2023 ambulatory AYAKA MARIANA Facility:[facility] Start: 04-22-2023 End: 04-22-2023 ambulatory SHARON VIGIL Facility:[facility] Start: 01-18-2018 End: 01-20-2018 Patient encounter procedure Rashel Rodriguez MD Work Phone: [facility] Work Phone: Start: 10-07-2017 End: 10-07-2017 ambulatory UNKNOWN PROVIDER Facility:[facility] Procedures Date Procedure Procedure Detail Performing Clinician Start: 06-25-2020 Follow-up visit Start: 01-18-2018 End: 01-20-2018 Blood pressure outside of normal parameters - follow-up not documented Rashel Rodriguez MD Work Phone: Start: 01-18-2018 End: 01-20-2018 BMI outside of normal parameters - no follow-up plan/reason not given Rashel Rodriguez MD Work Phone: Start: 01-18-2018 End: 01-20-2018 Current medications documented Rsahel Rodriguez MD Work Phone: Start: 01-18-2018 End: 01-20-2018 Osteoarthritis assess Rashel Herzog Work Phone: Start: 01-18-2018 End: 01-20-2018 Pain assessment documented as positive - follow-up documented Rashel Rodriguez MD Work Phone: Start: 01-18-2018 End: 01-20-2018 Tobacco screening or cessation counseling not performed - unknown reason Rashel Rodriguez MD Work Phone: Plan of Treatment Date Care Activity Detail Author [facility] Work Phone: Immunizations Immunization Date Immunization Notes Care Provider Carol kennedy No information available. Sam Tate LPN [facility] Work Phone: Payers Date Payer Category Payer Unknown [id number] 1960 Unknown [id number] Social History Date Type Detail Facility Start: 01-20-2018 End: 01-20-2018 Assertion Unknown if ever smoked [facility] Work Phone: NEGATED: Highlighted rowStart: 01-18-2018 End: 01-18-2018 Employment detail OCCUPATION#1 [employer] [facility] Work Phone: Progress note 04-29-2023 Note Date & Type Note Facility 04-29-2023 Note HNO ID: [id number] Author: Olivia Washburn RDMS Service: ? Author Type: Ocean Fishing Guide Type: Progress Notes Filed: 04/29/2023 3:05 PM [...] IV DATA: Not applicable SIGNED BY: Olivia Washbunr RDMS April 29, 2023 3:05 PM [facility] Progress note 04-22-2023 Note Date & Type Note Facility 04-22-2023 Note HNO ID: [id number] Author: Ayaka Reyes MD Service: ? Author Type: Physician Type: Progress Notes Filed: 04/22/2023 2:47 PM Note Text: Bus Or Truck Garage Mechanic offered: Patient accepts, visit chaperoned by Inocencio Casanova LPN. Shimon Villagomez is a 63 year old female who presents for evaluation of PMB s/p ablation in 2007.Bleeding is sporadic and scant with spots on wiping on ~ 4 occasions. OB History T0 L0 SAB0 IAB0 Ectopic0 Multiple0 Live Births0 Shipping And Receiving Material Handler History LMP: 04/29/2007, Ablation Age at Menarche: Age at First : Age at Menopause: Shipping And Receiving Material Handler History Comments: Sexual Activity: Never; No partner [...] external genitalia normal, normal Bartholin's glands, urethra, [place]'s glands, no vulvar lesions, no cervical lesions, [...] PLAN: pap/HPV Pelvic utrasound Ayaka Reyes MD [facility] Advance Directives There may be information [...] CREATED AUTHOR AUTHOR'S EBONIE ATION 06/05/2021 [facility] [place] DATE CREATED AUTHOR AUTHOR'S EBONIE ATION 05/05/2023 [facility] FOR RECORDS PERTAINING TO PATIENTS WHO [...] BE BASED ON THE PRIMARY CLINICAL RECORDS. [facility] [facility]. provides no warranty or guarantee of the accuracy or completeness of information in this document.
[2023-06-14 14:28] LABS: Absolute Lymphocyte Count 2.91 X10^3/uL (0.83-4.51); Absolute Neutrophil Count 4.8 X10^3/uL (2.0-7.7); Basophil# 0.07 X10^3/uL; Basophil% 0.8 % (0-1); Eosinophil# 0.27 X10^3/uL; Eosinophils% 3.1 % (0-5); Hematocrit 46.5 % (37-47); Hemoglobin 14.4 g/dL (12.0-15.0); Lymphocyte # 2.91 X10^3/ul (0.83-4.51); Lymphocyte % 33.6 % (19-41); Mean Corpuscular Hgb 26.5 pg (27.0-32.0); Mean Corpuscular Volume 85.5 fL (81-99); Mean Platelet Vol. 9.5 fl (6.2-12.0); Monocyte# 0.47 X10^3/uL; Monocyte% 5.4 % (0-10); NRBC Flagged by Analyzer 0 % (0-5); Neutrophil # 4.83 X10^3/uL (2.7-7.7); Neutrophil % 55.7 % (47-70); Platelet Count 280 K/mm3 (150-450); RBC Distribution Width CV 14.3 % (11.6-14.6); RBC Distribution Width SD 43.1 fl (35.1-43.9); Red Blood Count 5.44 M/mm3 (4.2-5.4); White Blood Count 8.7 K/mm3 (4.4-11.0)
[2023-06-14 15:00] LABS: Hemoglobin A1c 6.7 % (3.8-5.6)
[2023-06-14 15:03] LABS: AST(SGOT) 16 U/L (15-37); Alanine Aminotransfer ALT/SGPT 37 U/L (13-56); Albumin, Serum 3.5 g/dL (3.2-5.0); Alkaline Phosphatase 123 U/L (45-117); Anion Gap 3 (5-15); BUN 8 mg/dL (7-18); BUN/Creat Ratio 8.6 RATIO (10-20); Calcium,Total 10.3 mg/dL (8.5-10.1); Chloride 103 mmol/L (98-107); Creatinine, Serum 0.93 mg/dL (0.55-1.02); EST Glomerular Filtration Rate 65 mL/min (>60); Est Glom Filt Rate - Afr Amer 78 mL/min (>60); Free T3 2.7 pg/mL (2.18-3.98); Globulin 3.6 g/dL (2.2-4.2); Glucose 180 mg/dL (74-106); Protein, Total 7.1 g/dL (6.4-8.2); Sodium Level 137 mmol/L (136-145); T4 Free Direct 0.93 ng/dL (0.76-1.46); Thyroid Stim Hormone (TSH) 2.09 uIU/mL (0.358-3.74)
[2023-06-22 05:07] LABS: Testosterone Free 12.4 pg/mL (0.0-4.2)
== END | disposition home or self-care (01) ==
LOC: LAB 13:16
PROVIDERS: PCP Family Medicine; Referring Provider Family Medicine; Visit Provider Family Medicine
DX: E11.69 Type 2 diabetes mellitus with other specified complication (principal); E04.9 Nontoxic goiter, unspecified; F64.0 Transsexualism; M25.512 Pain in left shoulder
CPT/HCPCS: 36415; 80053; 83036; 84402; 84439; 84443; 84481; 85025

== ENCOUNTER → 2023-06-21 | Outpatient (CLI) | payer BC, SELFPAY ==
--- NOTE | 2023-06-21 16:45 | MRI_ITS ---
STUDY: MRI LEFT SHOULDER REASON FOR EXAM: Female, 63 years old. Pain. TECHNIQUE: Standardized fat and water weighted pulse sequences were obtained in all 3 orthogonal planes. COMPARISON: None. FINDINGS: There is supraspinatus, infraspinatus, and subscapularis tendinosis without a full-thickness tear. Normal teres minor tendon. Normal supraspinatus muscle. Normal infraspinatus muscle. Normal subscapularis muscle. Normal teres minor muscle. There is subchondral cyst formation in the inferior glenoid (coronal T2 series 5 images 10-11). Normal humeral head and visualized proximal humerus. Normal biceps labral complex. Normal intracapsular long biceps tendon. Normal labrum. Normal capsulo-ligamentous complex. Normal rotator interval. There is hypertrophic acromioclavicular arthrosis, with inferior osteophyte formation, with mild effacement of the supraspinatus myotendinous junction (coronal T2 series 5 image 14). There is a Type II morphology (curved), with a neutral orientation. There is trace subacromial-subdeltoid bursal fluid. Normal visualized coracohumeral and coracoacromial ligaments. Normal quadrilateral space. Normal axillary space. Normal deltoid muscle. Normal trapezius muscle. MRI/Upper Ext Joint Only(Routine) IMPRESSION: Supraspinatus, infraspinatus, and subscapularis tendinosis without a full-thickness rotator cuff tear. Hypertrophic acromioclavicular arthrosis, with inferior osteophyte formation, with mild effacement of the supraspinatus myotendinous junction. Minimal subacromial-subdeltoid bursitis. Subchondral cyst formation in the inferior glenoid. Electronically Signed: Espinoza Palma MD at 8:52 EST ,
--- OUTSIDE RECORDS SUMMARY | 2023-06-21 18:32 | XMS RPT_ITS | CCD ---
Author Name Unknown Address [address] [place] [address] Organization [facility] Care Team Providers Care Diver Helper Name Role Phone Rashel Rodriguez MD Unavailable PROVIDER, UNKNOWN Attending Unavailable PROVIDER, UNKNOWN Admitting Unavailable PATIENT, SELF Referring Unavailable AYAKA REYES Referring Unavailable SHARON VIGIL Primary Care Unavailable SHARON VIGIL Primary Care Unavailable AYAKA REYES Attending Unavailable Allergies Allergy Classification Reported Allergen(s) Allergy Type Date of Onset Reaction(s) Facility (1 source) amoxicillin Drug Allergy 4 [facility] Work Phone: (1 source) sulfacetamide Drug Allergy 4 skin rash [facility] Work Phone: (1 source) Sulfonamides (Antibiotic); Translations: [SULFA ANTIBIOTICS] Propensity to adverse reactions to drug (disorder) 6 [facility] (2 sources) AMOXICILLIN-POT CLAVULANATE; Translations: [AMOXICILLIN-POT CLAVULANATE] Propensity to adverse reactions to drug (disorder) 0 [facility] (1 source) Sulfonamides (Antibiotic); Translations: [SULFA (SULFONAMIDE ANTIBIOTICS)] Propensity to adverse reactions to drug (disorder) 6 [facility] Repository Medications Completed/Discontinued Medications Medication Drug Class(es) Dates Sig (Normalized) Sig (Original) acetaminophen 325 mg / oxyCODONE hydrochloride 5 mg oral tablet (1 source) Opioid Agonist Start: 12-19-2013 PERCOCET 5-325 MG TABS as needed for pain. OXYCODONE-ACETAMIN OPHEN [id number] Noah Mcclain MD cetirizine hydrochloride 10 mg oral tablet (1 source) Histamine-1 Receptor Antagonist Start: 05-11-2013 CETIRIZINE HCL 10 MG TABS 1 tablet daily CETIRIZINE HCL [id number] Noah Mcclain MD esomeprazole 40 mg delayed release oral capsule (1 source) Proton Pump Inhibitor Start: 05-11-2013 NEXIUM 40 MG CPDR 1 Tablet daily ESOMEPRAZOLE MAGNESIUM [id number] Noah Mcclain MD FLUoxetine 10 mg oral capsule (1 source) Serotonin Reuptake Inhibitor Start: 05-11-2013 FLUOXETINE HCL (PMDD) 10 MG CAPS 1 capsule daily FLUOXETINE HCL (PMDD) [id number] Noah Mcclain MD gabapentin 300 mg oral capsule (1 source) Anti-epileptic Agent Start: 05-11-2013 GABAPENTIN 300 MG CAPS 2 tablets at bedtime GABAPENTIN [id number] Noah Mcclain MD nabumetone 750 mg oral tablet (1 source) Nonsteroidal Anti-inflammatory Drug Start: 01-18-2018 NABUMETONE 750 MG TABS twice a day NABUMETONE [id number] Rashel Rodriguez MD naproxen 500 mg oral tablet (1 source) Nonsteroidal Anti-inflammatory Drug Start: 12-19-2013 take 1 tablet by mouth twice daily at mealtime NAPROSYN 500 MG TABS Take 1 tablet by mouth 2 times a day with food NAPROXEN [id number] Noah Mcclain MD Problems Active Problems Problem [...] Sign Value Performing Clinician Facility NEGATED: Highlighted [id number] 15:15-0400 BMI (Body Mass Index) 42.42 kg/m2 Sam Dagy IT LEAD [facility] Work Phone: NEGATED: Highlighted [id number] 15:15-0400 BP Diastolic 81 mm[Hg] Sam Dagy IT LEAD [facility] Work Phone: NEGATED: Highlighted [id number] 15:15-0400 BP Diastolic 86 mm[Hg] Sam Dagy IT LEAD [facility] Work Phone: NEGATED: Highlighted [id number] 15:15-0400 BP Systolic 148 mm[Hg] Sam Dagy IT LEAD [facility] Work Phone: NEGATED: Highlighted [id number] 15:15-0400 BP Systolic 155 mm[Hg] Sam Dagy IT LEAD [facility]opaedic [facility] Work Phone: NEGATED: Highlighted [id number] 15:15-0400 Height 172.72 cm Sam Dagy IT LEAD [facility] Work Phone: NEGATED: Highlighted [id number] 15:15-0400 Height 173 cm Sam Dagy IT LEAD [facility] Work Phone: NEGATED: Highlighted [id number] 15:15-0400 Pulse (Heart Rate) 54 /min Sam Dagy IT LEAD [facility] Work Phone: NEGATED: Highlighted [id number] 15:15-0400 Weight 126.1 kg Sam Dagy IT LEAD [facility] Work Phone: NEGATED: Highlighted [id number] 15:15-0400 Weight 126 kg Sam Dagy IT LEAD [facility] Work Phone: Encounters Encounter Date Encounter Type Care Provider Facility Start: 04-29-2023 End: 04-29-2023 ambulatory AYAKA MARIANA Facility:[facility] Start: 04-22-2023 End: 04-22-2023 ambulatory SHARON VIGIL Facility:[facility] Start: 01-18-2018 End: 01-20-2018 Patient encounter procedure Rashel Rodriguez MD Work Phone: [facility] Work Phone: Start: 10-07-2017 End: 10-07-2017 ambulatory UNKNOWN PROVIDER Facility:[facility] Procedures Date Procedure Procedure Detail Performing Clinician [...] of Treatment Date Care Activity Detail Author [facility] Work Phone: Immunizations Immunization Date Immunization Notes Care Provider Carol kennedy No information available. Sam Tate LPN [facility] Work Phone: Payers Date Payer Category Payer Unknown [id number] 1960 Unknown 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 Author Type: Fruit Grader Type: Progress Notes Filed: 04/29/2023 3:05 PM [...] Washburn RDMS April 29, 2023 3:05 PM [facility] Progress note 04-22-2023 Note Date & Type Note Facility 04-22-2023 Note HNO ID: [id number] Author: Ayaka Reyes MD Service: ? Author Type: Physician Type: Progress Notes Filed: 04/22/2023 2:47 PM Note Text: Real Estate Sales Agent offered: Patient accepts, visit chaperoned by Inocencio Casanova LPN. Shimon Villagomez is a 63 year old female who presents for evaluation of PMB s/p ablation in 2007.Bleeding is sporadic and scant with spots on wiping on ~ 4 occasions. 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 Technician History LMP: 04/29/2007, Ablation Age at Menarche: Age at First : Age at Menopause: Chemical Laboratory Technician History Comments: Sexual Activity: Never; No partner [...] external genitalia normal, normal Bartholin's glands, urethra, [employer]'s glands, no vulvar lesions, no cervical lesions, [...] PLAN: pap/HPV Pelvic utrasound Ayaka Reyes MD [facility] Advance Directives There may be information available, [...] CREATED AUTHOR AUTHOR'S EBONIE ATION 06/05/2021 [facility] DATE CREATED AUTHOR AUTHOR'S EBONIE ATION 05/05/2023 [facility] FOR RECORDS PERTAINING TO PATIENTS WHO ARE [...] BE BASED ON THE PRIMARY CLINICAL RECORDS. [facility] [employer] [facility]. provides no warranty or guarantee of the accuracy or completeness of information in this document.
== END | disposition home or self-care (01) ==
PROVIDERS: PCP Family Medicine; Referring Provider Family Medicine; Visit Provider Family Medicine
DX: M25.512 Pain in left shoulder (principal)
CPT/HCPCS: 73221

== ENCOUNTER 2023-07-20 13:23 | Outpatient (RCR) | payer BC, SELFPAY | END 2023-08-01 23:59 | LOC: NS 13:23 | PROVIDERS: PCP Family Medicine; Referring Provider Family Medicine; Visit Provider Family Medicine | DX: Z71.3 Dietary counseling and surveillance (principal); E11.69 Type 2 diabetes mellitus with other specified complication; E11.22 Type 2 diabetes mellitus with diabetic chronic kidney disease; N18.2 Chronic kidney disease, stage 2 (mild) | CPT/HCPCS: 97802 ==

== ENCOUNTER 2023-08-03 13:27 | Outpatient (RCR) | payer BC, SELFPAY | END 2023-08-31 23:59 | LOC: DC 13:27 | PROVIDERS: PCP Family Medicine; Referring Provider Family Medicine; Visit Provider Family Medicine | DX: E11.69 Type 2 diabetes mellitus with other specified complication (principal); E11.22 Type 2 diabetes mellitus with diabetic chronic kidney disease; N18.2 Chronic kidney disease, stage 2 (mild); Z71.3 Dietary counseling and surveillance | CPT/HCPCS: 97803 ==

== ENCOUNTER → 2023-08-11 | Outpatient (CLI) | payer BC, SELFPAY ==
[2023-08-11 17:46] LABS: Absolute Neutrophil Count 4.3 X10^3/uL (2.0-7.7); Basophil# 0.07 X10^3/uL; Basophil% 0.9 % (0-1); Eosinophil# 0.18 X10^3/uL; Eosinophils% 2.2 % (0-5); Hematocrit 44.9 % (37-47); Hemoglobin 14.1 g/dL (12.0-15.0); Lymphocyte % 37.2 % (19-41); Mean Corp Hgb Conc 31.4 g/dL (32-36); Mean Corpuscular Hgb 26.2 pg (27.0-32.0); Mean Corpuscular Volume 83.5 fL (81-99); Mean Platelet Vol. 9.6 fl (6.2-12.0); Monocyte% 6.2 % (0-10); NRBC Flagged by Analyzer 0 % (0-5); Neutrophil # 4.25 X10^3/uL (2.7-7.7); Neutrophil % 52.6 % (47-70); Platelet Count 253 K/mm3 (150-450); RBC Distribution Width SD 45.2 fl (35.1-43.9); Red Blood Count 5.38 M/mm3 (4.2-5.4); White Blood Count 8.1 K/mm3 (4.4-11.0)
[2023-08-11 18:08] LABS: Anion Gap 3 (5-15); BUN 19 mg/dL (7-18); BUN/Creat Ratio 17.6 RATIO (10-20); Calcium,Total 10.5 mg/dL (8.5-10.1); Chloride 104 mmol/L (98-107); Creatinine, Serum 1.08 mg/dL (0.55-1.02); EST Glomerular Filtration Rate 54 mL/min (>60); Est Glom Filt Rate - Afr Amer 66 mL/min (>60); Glucose 123 mg/dL (74-106); Potassium 4.1 mmol/L (3.5-5.1); Sodium Level 137 mmol/L (136-145)
[2023-08-11 18:19] LABS: Hemoglobin A1c 6.2 % (3.8-5.6)
== END | disposition home or self-care (01) ==
LOC: MFPLAB 16:36
PROVIDERS: PCP Family Medicine; Visit Provider Family Medicine
DX: Z01.818 Encounter for other preprocedural examination (principal); Z01.810 Encounter for preprocedural cardiovascular examination
CPT/HCPCS: 36415; 80048; 83036; 85025

== ENCOUNTER → 2023-08-16 | Outpatient (CLI) | payer BC, SELFPAY ==
--- NOTE | 2023-08-16 17:25 | RAD_ITS ---
STUDY: X-RAY - RIGHT ANKLE REASON FOR EXAM: Female, 63 years old. TIBIALIS POSTERIOR DYSFUNCTION TECHNIQUE: 3 view(s) of the ankle. COMPARISON: None. FINDINGS: Normal visualized distal tibia and fibula. Normal medial and lateral malleoli. Mild joint space narrowing and erosions of the tibiotalar joint consistent with arthrosis. Radiolucency the medial shoulder of the talar dome may represent an osteochondral lesion. Moderate-sized plantar and posterior calcaneal enthesophytes. The visualized subtalar, talonavicular, calcaneocuboid and tarsal articulations are normal. The soft tissue structures are unremarkable. RAD/Ankle min 3 Views IMPRESSION: Mild tibiotalar joint arthrosis with possible osteochondral lesion medial shoulder of the talar dome. MRI may be useful. Electronically Signed: Marcus Nieves MD at 22:44 EDT ,
== END | disposition home or self-care (01) ==
PROVIDERS: PCP Family Medicine; Referring Provider Family Medicine; Visit Provider Family Medicine
DX: M76.829 Posterior tibial tendinitis, unspecified leg (principal)
CPT/HCPCS: 73610

== ENCOUNTER → 2023-09-06 | Outpatient (CLI) | payer BC, SELFPAY ==
--- NOTE | 2023-09-06 14:00 | MRI_ITS ---
STUDY: MRI RIGHT ANKLE WITHOUT CONTRAST REASON FOR EXAM: Female, 63 years old. ANKLE PAIN TECHNIQUE: Standardized fat and water weighted pulse sequences were obtained in all 3 orthogonal planes. COMPARISON: Right ankle radiographs dated 08/16/2023. FINDINGS: Normal posterior tibialis tendon. Normal flexor digitorum longus tendon. Normal flexor hallucis longus tendon. There is a longitudinal split tear of the peroneus brevis tendon as it courses around the distal fibular tip (axial STIR series 5 images 15-22). Normal peroneus longus tendon. Normal tibialis anterior tendon. Normal extensor hallucis longus tendon. Normal extensor digitorum longus tendons. Normal Achilles tendon and teno-osseous insertion. Normal plantar fascia. There are plantar and posterior calcaneal spurs. Normal intrinsic muscles of the rearfoot. Normal distal tibiofibular syndesmotic ligamentous complex. Normal lateral ligamentous complex. Normal subtalar ligaments and sinus tarsi. Normal deltoid ligamentous complex. Normal plantar calcaneonavicular (spring) ligament. There is an osteochondral lesion along the medial talar dome, overall measuring 1.0 cm AP, 0.9 cm transverse, and 1.0 cm in depth. Normal subtalar articulations. Normal talonavicular articulation. Normal calcaneocuboid articulation. Normal navicular-cuneiform articulations. There is subcutaneous soft tissue edema around the right ankle. MRI/Lower Ext Joint Only (Routine) IMPRESSION: Longitudinal split tear of the peroneus brevis tendon as it courses around the distal fibular tip. Plantar and posterior calcaneal spurs. 1.0 x 0.9 x 1.0 cm osteochondral lesion along the medial talar dome. Subcutaneous soft tissue edema around the right ankle. Electronically Signed: Espinoza Palma MD at 11:56 EDT ,
== END | disposition home or self-care (01) ==
LOC: MRI 13:26
PROVIDERS: PCP Family Medicine; Referring Provider Family Medicine; Visit Provider Family Medicine
DX: M25.571 Pain in right ankle and joints of right foot (principal)
CPT/HCPCS: 73721

== ENCOUNTER 2023-12-08 13:06 | Outpatient (RCR) | payer BC, SELFPAY | END 2024-01-01 23:59 | LOC: DC 13:06 | PROVIDERS: PCP Family Medicine; Referring Provider Family Medicine; Visit Provider Family Medicine | DX: E11.9 Type 2 diabetes mellitus without complications (principal) | CPT/HCPCS: 97803 ==

== ENCOUNTER → 2023-12-16 | Outpatient (CLI) | payer BC, SELFPAY ==
[2023-12-16 18:07] LABS: Erythrocyte Sedimentation Rate 12 mm/hr (0-30)
[2023-12-16 18:09] LABS: Absolute Lymphocyte Count 2.09 X10^3/uL (0.83-4.51); Absolute Neutrophil Count 3.6 X10^3/uL (2.0-7.7); Basophil# 0.06 X10^3/uL; Basophil% 0.9 % (0-1); Eosinophil# 0.17 X10^3/uL; Eosinophils% 2.7 % (0-5); Hematocrit 45.3 % (37-47); Hemoglobin 13.9 g/dL (12.0-15.0); Lymphocyte # 2.09 X10^3/ul (0.83-4.51); Lymphocyte % 32.9 % (19-41); Mean Corp Hgb Conc 30.7 g/dL (32-36); Mean Corpuscular Hgb 25.7 pg (27.0-32.0); Mean Corpuscular Volume 83.9 fL (81-99); Monocyte% 6.3 % (0-10); NRBC Flagged by Analyzer 0 % (0-5); Neutrophil % 56.7 % (47-70); Platelet Count 289 K/mm3 (150-450); RBC Distribution Width CV 14.7 % (11.6-14.6); RBC Distribution Width SD 44.5 fl (35.1-43.9); White Blood Count 6.4 K/mm3 (4.4-11.0)
[2023-12-16 18:22] LABS: Vitamin B12 375 pg/mL (211-911)
[2023-12-16 18:25] LABS: Hemoglobin A1c 6.1 % (3.8-5.6)
[2023-12-16 18:27] LABS: PTHIN 105.8 pg/mL (18.4-80.1)
[2023-12-16 18:53] LABS: ALB/GLOB Ratio 0.9 RATIO (0.9-2.4); AST(SGOT) 18 U/L (15-37); Alanine Aminotransfer ALT/SGPT 26 U/L (13-56); Albumin, Serum 3.4 g/dL (3.2-5.0); Alkaline Phosphatase 153 U/L (45-117); Anion Gap 7 (5-15); BUN 13 mg/dL (7-18); BUN/Creat Ratio 13.4 RATIO (10-20); CRP 3.84 mg/L (0.0-3.0); Calcium,Total 10.1 mg/dL (8.5-10.1); Chloride 106 mmol/L (98-107); Creatinine, Serum 0.97 mg/dL (0.55-1.02); EST Glomerular Filtration Rate 61 mL/min (>60); Est Glom Filt Rate - Afr Amer 74 mL/min (>60); Globulin 3.6 g/dL (2.2-4.2); Glucose 106 mg/dL (74-106); Potassium 4.2 mmol/L (3.5-5.1); Sodium Level 138 mmol/L (136-145)
== END | disposition home or self-care (01) ==
LOC: MFPLAB 14:54
PROVIDERS: PCP Family Medicine; Visit Provider Family Medicine
DX: N25.81 Secondary hyperparathyroidism of renal origin (principal); E11.69 Type 2 diabetes mellitus with other specified complication; E53.8 Deficiency of other specified B group vitamins
CPT/HCPCS: 36415; 80053; 82607; 82746; 83036; 83970; 84443; 85025; 85652; 86140

== ENCOUNTER → 2023-12-31 | Outpatient (CLI) | payer BC, SELFPAY ==
[2023-12-31 18:06] LABS: Vitamin D,25 Hydroxy 52.6 ng/mL
== END | disposition home or self-care (01) ==
LOC: MTLAB 16:10
PROVIDERS: PCP Family Medicine; Referring Provider Internal Medicine Endocrinology, Diabetes & Metabolism; Visit Provider Internal Medicine Endocrinology, Diabetes & Metabolism
DX: E55.9 Vitamin D deficiency, unspecified (principal)
CPT/HCPCS: 36415; 82306

== ENCOUNTER → 2024-03-21 | Outpatient (CLI) | payer BC, SELFPAY ==
[2024-03-21 17:10] LABS: Vitamin B12 386 pg/mL (211-911); Vitamin D,25 Hydroxy 42.6 ng/mL
[2024-03-21 17:19] LABS: ALB/GLOB Ratio 1.1 RATIO (0.9-2.4); AST(SGOT) 18 U/L (15-37); Alanine Aminotransfer ALT/SGPT 33 U/L (13-56); Albumin, Serum 3.7 g/dL (3.2-5.0); Alkaline Phosphatase 149 U/L (45-117); Anion Gap 3 (5-15); BUN 15 mg/dL (7-18); Calcium,Total 10.2 mg/dL (8.5-10.1); Chloride 105 mmol/L (98-107); Creatinine, Serum 0.94 mg/dL (0.55-1.02); EST Glomerular Filtration Rate 64 mL/min (>60); Est Glom Filt Rate - Afr Amer 77 mL/min (>60); Globulin 3.4 g/dL (2.2-4.2); Glucose 120 mg/dL (74-106); Potassium 3.8 mmol/L (3.5-5.1); Protein, Total 7.1 g/dL (6.4-8.2); Sodium Level 136 mmol/L (136-145)
[2024-03-22 09:58] LABS: Cholesterol 201 mg/dL (200); High Density Lipoprotein 40 mg/dL
== END | disposition home or self-care (01) ==
LOC: LAB 15:19
PROVIDERS: PCP Family Medicine; Referring Provider Family Medicine; Visit Provider Family Medicine
DX: N18.2 Chronic kidney disease, stage 2 (mild) (principal); E53.8 Deficiency of other specified B group vitamins; N25.81 Secondary hyperparathyroidism of renal origin; F64.0 Transsexualism
CPT/HCPCS: 36415; 80053; 82306; 82465; 82607; 82746; 83718

== ENCOUNTER → 2024-04-25 | Outpatient (CLI) | payer BC, SELFPAY | END | disposition home or self-care (01) | LOC: SL 12:24 | PROVIDERS: PCP Family Medicine; Referring Provider Nurse Practitioner Acute Care; Visit Provider Nurse Practitioner Acute Care | DX: G47.10 Hypersomnia, unspecified (principal) | CPT/HCPCS: 95806 ==

== ENCOUNTER → 2024-05-15 | Outpatient (CLI) | payer BC, SELFPAY ==
--- NOTE | 2024-05-15 15:32 | US_ITS ---
STUDY: THYROID ULTRASOUND REASON FOR EXAM: Female, 64 years old. One year follow-up TECHNIQUE: Ultrasound evaluation of the thyroid was performed with real-time and static reyes-scale imaging. COMPARISON: Thyroid ultrasound dated September 16, 2020 FINDINGS: RIGHT LOBE: Previously surgically removed. LEFT LOBE: The left lobe of the thyroid gland measures 4.5 x 2.0 x 2.1 centimeters, previously measuring 4.9 x 2.2 x 1.8 cm. Previously seen largest dominant anterior subcapsular cyst measuring 1.2 x 1.2 x 0.5 cm currently measures 1.4 x 0.8 x 0.5 cm. There is a heterogeneous echotexture. Redemonstration of multinodular goiter of the left lobe, with numerous nodules and cysts and coarsened parenchyma. ISTHMUS: The isthmus measures 2.5 mm. No demonstrated masses or fluid collections or cysts or lymphadenopathy in the surrounding tissues. US/Thyroid IMPRESSION: 1. No significant interval change. Multinodular goiter 2. TR2: 2 points = not suspicious 3. If physical symptoms, abnormal thyroid values or other findings warrant further radiologic assessment repeat the study and consider nuclear medicine iodine 123 or PET/CT if there is concern for malignancy. 4. Targeted image guided biopsy of nodules of interest can also be performed with definitive pathologic assessment and diagnosis. ACR Thyroid Imaging Reporting and Data System (ACR TI-RADS) Reference: COMPOSITION (choose 1): Cystic or almost completely cystic - 0 points Spongiform- 0 points Mixed cystic and solid - 1 point Solid almost completely solid - 2 points ECHOGENICITY (choose 1): Anechoic space - 0 points Hyperechoic or isoechoic-1 point Hypoechoic-2 points Very hypoechoic-3 points SHAPE (choose 1): : Wider than tall-0 points Taller than wide-3 points MARGINS ( smooth, lobular, ill-defined) ECHOGENIC FOCI (macro or microcalcifications) Scoring and classification TR1: 0 points = benign TR2: 2 points = not suspicious TR3: 3 points = mildly suspicious TR4: 4-6 points = moderately suspicious TR5: ?7 points = highly suspicious Recommendations TR1: no FNA required TR2: no FNA required TR3: ?1.5 cm follow up, ?2.5 cm FNA = follow up: 1, 3 and 5 years TR4: ?1.0 cm follow up, ?1.5 cm FNA = follow up: 1, 2, 3 and 5 years TR5: ?0.5 cm follow up, ?1.0 cm FNA = annual follow up for up to 5 years FNA biopsy is recommended for suspicious lesions (TR3-TR5) with the above size criteria. If there are multiple nodules, the two with the highest ACR TI-RADS scores should be sampled (rather than the two largest), with largest size being used a tie-breaker if there are multiple nodules of the same classification. Electronically Signed: Chato Jenkins MD at 9:50 EST Reading Location ID and State: [facility] / [place] , Service support ,
== END | disposition home or self-care (01) ==
LOC: OPUS 15:29
PROVIDERS: PCP Family Medicine; Referring Provider Surgery; Visit Provider Surgery
DX: E21.3 Hyperparathyroidism, unspecified (principal); Q89.2 Congenital malformations of other endocrine glands

== ENCOUNTER → 2024-06-15 | Outpatient (CLI) | payer BC, SELFPAY ==
[2024-06-15 17:48] LABS: Anion Gap 5 (5-15); BUN 12 mg/dL (7-18); BUN/Creat Ratio 12.3 RATIO (10-20); Calcium,Total 10.3 mg/dL (8.5-10.1); Chloride 107 mmol/L (98-107); Creatinine, Serum 0.97 mg/dL (0.55-1.02); EST Glomerular Filtration Rate 61 mL/min (>60); Est Glom Filt Rate - Afr Amer 74 mL/min (>60); Glucose 101 mg/dL (74-106); Magnesium 2.4 mg/dL (1.6-2.6); Sodium Level 139 mmol/L (136-145)
== END | disposition home or self-care (01) ==
PROVIDERS: PCP Family Medicine
DX: L03.90 Cellulitis, unspecified (principal)
CPT/HCPCS: 36415; 80048; 83735

== ENCOUNTER → 2024-07-06 | Outpatient (CLI) | payer BC, SELFPAY ==
[2024-07-06 16:20] LABS: ALB/GLOB Ratio 1.5 RATIO (0.9-2.4); AST(SGOT) 29 U/L (<=31); Alanine Aminotransfer ALT/SGPT 31 U/L (<=34); Albumin, Serum 4.1 g/dL (3.4-4.8); Alkaline Phosphatase 135 U/L (35-104); Anion Gap 10 (5-15); BUN 12 mg/dL (4-19); BUN/Creat Ratio 13.7 RATIO (10-20); Calcium,Total 10.8 mg/dL (7.6-11.0); Carbon Dioxide 27.4 mmol/L (21.0-32.0); Chloride 104 mmol/L (98-108); Creatinine, Serum 0.86 mg/dL (0.70-1.20); EST Glomerular Filtration Rate 75 (>60); Globulin 2.7 g/dL (2.2-4.2); Glucose 110 mg/dL (70-99); Potassium 3.8 mmol/L (3.3-5.1); Protein, Total 6.8 g/dL (5.9-8.4); Sodium Level 141 mmol/L (133-145); Total Bilirubin 0.44 mg/dL (0.00-1.30)
[2024-07-06 16:29] LABS: Hemoglobin A1c 6.4 % (<=5.6)
[2024-07-06 20:46] LABS: CRP < 3.00 mg/L (0.0-3.0)
[2024-07-13 13:08] LABS: Testosterone, % Free 2.94 % (0.50-2.80); Testosterone, Free 1.76 ng/dL (0.10-0.85); Testosterone, Total 60 ng/dL (3-67)
== END | disposition home or self-care (01) ==
LOC: LAB 14:28
PROVIDERS: PCP Family Medicine; Referring Provider Family Medicine; Visit Provider Family Medicine
DX: L03.115 Cellulitis of right lower limb (principal); E11.69 Type 2 diabetes mellitus with other specified complication; I10 Essential (primary) hypertension; F64.0 Transsexualism
CPT/HCPCS: 36415; 80053; 83036; 84402; 84403; 86140

== ENCOUNTER → 2024-12-18 | Outpatient (CLI) | payer BC, SELFPAY ==
[2024-12-18 17:48] LABS: Hematocrit 40.1 % (37-47); Hemoglobin 12.9 g/dL (12.0-15.0); Immature Granulocytes Count 0.010 X10^3/uL (0.0-0.0); Mean Corp Hgb Conc 32.2 g/dL (32-36); Mean Corpuscular Volume 85.3 fL (81-99); Mean Platelet Vol. 9.7 fl (6.2-12.0); NRBC Flagged by Analyzer 0 % (0-5); Platelet Count 230 K/mm3 (150-450); RBC Distribution Width CV 13.8 % (11.6-14.6); RBC Distribution Width SD 42.8 fl (35.1-43.9); Red Blood Count 4.70 M/mm3 (4.2-5.4); White Blood Count 6.0 K/mm3 (4.4-11.0)
[2024-12-18 18:27] LABS: AST(SGOT) 21 U/L (<=31); Alanine Aminotransfer ALT/SGPT 20 U/L (<=34); Albumin, Serum 3.9 g/dL (3.4-4.8); Alkaline Phosphatase 142 U/L (35-104); Anion Gap 10 (5-15); BUN 12 mg/dL (4-19); BUN/Creat Ratio 12.8 RATIO (10-20); Calcium,Total 10.8 mg/dL (7.6-11.0); Carbon Dioxide 24.9 mmol/L (21.0-32.0); Chloride 106 mmol/L (98-108); Cholesterol 195 mg/dL (<=200); Globulin 2.6 g/dL (2.2-4.2); Glucose 78 mg/dL (70-99); Low Density Lipoprotein Calc. 127 mg/dL; Potassium 4.1 mmol/L (3.3-5.1); Triglycerides 135 mg/dL; Very Low Density Lipoprotein 27 mg/dL (5-40); Vitamin D,25 Hydroxy 65.0 ng/mL (30-100); cholesterol:hdl ratio screen 4.72
[2024-12-18 19:47] LABS: PTHIN 106 pg/mL (11-61)
== END | disposition home or self-care (01) ==
LOC: MFPLAB 15:31
PROVIDERS: PCP Family Medicine; Visit Provider Family Medicine
DX: I10 Essential (primary) hypertension (principal); E11.69 Type 2 diabetes mellitus with other specified complication; F64.0 Transsexualism; N25.81 Secondary hyperparathyroidism of renal origin
CPT/HCPCS: 36415; 80053; 80061; 82306; 83036; 83970; 84402; 84403; 84443; 85025